=== PATIENT | female | born 1995 | race Caucasian/White ===

== ENCOUNTER 2016-06-01 10:19 | Emergency (ER) | payer OTHER ==
[~2016-06-01] VITALS: Ht 167.6 cm; Wt 115.2 kg
[~2016-06-01 10:19] MED LIST: PRENTAB26 PO
[2016-06-01 10:28] VITALS: TEMP 37; Ht 167.6 cm; Wt 115.2 kg
[2016-06-01] MEDS ORDERED: IBUPROFEN 600 MG TAB PO STA (10:57)
[2016-06-01] MEDS ORDERED: ACETAMINOPHEN 500 MG TAB PO STA (10:58)
--- NOTE | 2016-06-01 11:27 | EMERGENCY ROOM VISIT NOTE ---
History Report prepared by Tonny: aPt Rios Under the Supervision of: Dr. Kushal Ellis M.D. First contact with patient: 10:51 Chief Complaint: FLU LIKE SX Stated Complaint: FLU, BRONCHITIS History of Present Illness The patient is a 20 year old female who presents to the Emergency Room with complaints of worsening flu-like symptoms since yesterday. She reports cough, wheezing, shortness of breath, chills, hot flashes, headache, body aches, and sore throat. She has felt feverish but has not taken her temperature. She has not taken any medications for her symptoms. The patient denies any urinary symptoms. She has a rash on her lower back that she states is not new and has been evaluated before for this rash. She notes that her son is sick with similar symptoms and an ear infection. The patient is . She is unsure how far along she is, but had a positive test 3 weeks ago. She tried to make an appointment with her PCP today but they did not have any appointments available so she came to the ED for evaluation. The patient rates her pain as a 5/10 in severity. Source of History: patient Onset: yesterday Position: other (global) Symptom Intensity: 5/10 Quality: other (slu-like symptoms) Timing: worsening Associated Symptoms: + SOB, + chills, + cough, + headache, + rash, + sorethroat Note: Pt reports generalized body aches, wheezing, and hot flashes. Review of Systems All systems have been listed, reviewed, and are negative other than those previously mentioned. Please see Additional Medical History Sheet. Past Medical & Surgical Medical Problems: (1) 33 weeks gestation of (2) Cramping affecting , antepartum (3) Depression (4) Footling breech presentation (5) Frequent UTI (6) Intrauterine (7) Normal labor (8) Vaginal bleeding during , antepartum Family History No significant family history Social History Smoking Status: Never Smoker Alcohol Use: occasionally Marital Status: in relationship Housing Status: lives with roommate Occupation Status: employed, [employer] student Current/Historical Medications No Active Prescriptions or Reported Meds Allergies Coded Allergies: No Known Allergies (Verified , 0, 06/01/16) Physical Exam Vital Signs Date Time Temp Pulse Resp B/P Pulse Ox O2 Delivery O2 Flow Rate FiO2 06/01/16 12:02 99 16 100/58 95 Room Air 06/01/16 10:28 37.0 115 20 121/79 94 Room Air Physical Exam GENERAL: Patient awake, alert, oriented x 3. Patient follows commands. Patient does not appear toxic. Patient appears to be in minimal distress. Patient is adequately hydrated and well-nourished. SKIN: No erythema, pallor, cyanosis. Faint red non-blanching rash on low back. She has stretch levin on abdomen and back. HEENT: Normal head, pupils equal, reactive to light and accommodation. Ears normal. Oral cavity with slight swelling of the tonsils but no pus. Neck: Without adenopathy, no neck vein distention. LUNGS: Clear to auscultation. No wheezes, no rales, no rhonchi. HEART: No murmurs. No gallops. No rubs ABDOMEN: Obese, no masses, no rebound, no hepatomegaly or splenomegaly. EXTREMITIES: No signs of trauma. No pedal or pretibial edema. No calf or thigh tenderness. NEUROLOGIC: Cranial nerves II-XII within normal limits. No gross motor sensory function deficits. Medical Decision & Procedures Laboratory Results 06/01/16 11:05 06/01/16 11:05 Test 06/01/16 11:05 Red Blood Count 4.43 M/uL (4.2-5.4) Mean Corpuscular Volume 84.7 fL (80-100) Mean Corpuscular Hemoglobin 29.8 pg (25-34) Mean Corpuscular Hemoglobin Concent 35.2 g/dl (32-36) RDW Standard Deviation 42.7 fL (36.4-46.3) RDW Coefficient of Variation 13.8 % (11.5-14.5) Mean Platelet Volume 11.2 fL (7.4-10.4) Anion Gap 13.0 mmol/L (3-11) Est Creatinine Clear Calc Drug Dose 206.8 ml/min Estimated GFR () > 150.0 Estimated GFR (Non- 133.1 BUN/Creatinine Ratio 7.6 (10-20) Calcium Level 8.4 mg/dl (8.5-10.1) Influenza Type A Antigen POS for Influ A (NEG) Influenza Type B Antigen Neg for Influ B (NEG) Laboratory results as stated above per my review. Medications Administered Medications (Trade) Dose Ordered Sig/Luis Route Start Time Stop Time Status Last Admin Dose Admin Acetaminophen (Tylenol Tab) 1,000 mg NOW STAT PO 06/01/16 10:58 06/01/16 11:00 DC 06/01/16 11:04 1,000 MG ED Course 1051: Past medical records reviewed. The patient was evaluated in room C9. A complete history and physical examination was performed. 1058: Tylenol tab 1000 mg PO 1203: I reassessed the patient at this time. She is feeling better and resting comfortably. I discussed the results and treatment plan with the patient. I answered all pertaining questions that she had. She expressed understanding and verbalized agreement. The patient will be discharged home. Medical Decision Differential diagnoses includes influenza, other viral infection, pneumonia, bronchitis. Multiple labs were obtained. Please see above. The patient's strep test was negative. Influenza A is positive. The patient is . We did discuss the options of Tamiflu but following shared decision making we elected not to give her that medication. The patient's to continue taking Tylenol, drink extra fluids and rest. The patient's to be off work for the next 2 days. Impression Primary Impression: Influenza A Additional Impression: First trimester Scribe Attestation The scribe's documentation has been prepared under my direction and personally reviewed by me in its entirety. I confirm that the note above accurately reflects all work, treatment, procedures, and medical decision making performed by me. Departure Information Dispostion Home / Self-Care Prescriptions No Active Prescriptions or Reported Meds Referrals No Doctor, Assigned (PCP) Forms HOME CARE DOCUMENTATION FORM, IMPORTANT VISIT INFORMATION Patient Instructions ED Flu, My [facility] Additional Instructions 650 mg of Tylenol every 4 hours as needed for aches, pain or fever. Drink extra fluids. REST Off work until 06/03/16. Follow-up with obstetrics and with your family physician. Return here sooner if your symptoms are getting worse. Problem Qualifiers
[2016-06-01 11:30] LABS: HEMATOCRIT 37.5 % (37-47); MEAN CELL VOLUME 84.7 fL (80-100); MEAN CORPUSCULAR HEMOGLOBIN 29.8 pg (25-34); MEAN CORPUSCULAR HGB CONC 35.2 g/dl (32-36); MEAN PLATELET VOLUME 11.2 fL (7.4-10.4); PLATELET COUNT 189 K/uL (130-400); RED BLOOD COUNT 4.43 M/uL (4.2-5.4)
[2016-06-01 11:47] LABS: BLOOD UREA NITROGEN 4 mg/dl (7-18); BUN/CREATININE RATIO 7.6 (10-20); CALCIUM 8.4 mg/dl (8.5-10.1); CARBON DIOXIDE 18 mmol/L (21-32); CHLORIDE 106 mmol/L (98-107); CREATININE 0.55 mg/dl (0.60-1.20); GLUCOSE 97 mg/dl (70-99); POTASSIUM 3.7 mmol/L (3.5-5.1); SODIUM 137 mmol/L (136-145)
[2016-06-01 12:02] VITALS: BP 100/58; PULSE 99; O2SAT 95
== END 2016-06-01 12:25 | disposition home or self-care (01) ==
LOC: C.EDB 10:22 → C.EDC 12:25
DX: J09.X2 Influenza due to identified novel influenza A virus with other respiratory manifestations (principal); O00.01 Abdominal pregnancy with intrauterine pregnancy

== ENCOUNTER → 2016-07-25 | Outpatient (CLI) | payer OTHER ==
[~2016-07-25] MED LIST changes: +FLUO20CA36 PO; +MTR600X PO; +OXYC-57 PO
== END | disposition home or self-care (01) ==
LOC: C.PAPS 12:23
PROVIDERS: ATTEND Obstetrics & Gynecology
DX: R87.612 Low grade squamous intraepithelial lesion on cytologic smear of cervix (LGSIL) (principal)

== ENCOUNTER → 2016-07-25 | Outpatient (CLI) | payer OTHER ==
[2016-07-25 12:41] LABS: HEMATOCRIT 36.8 % (37-47); MEAN CELL VOLUME 86.4 fL (80-100); MEAN CORPUSCULAR HEMOGLOBIN 29.6 pg (25-34); MEAN CORPUSCULAR HGB CONC 34.2 g/dl (32-36); MEAN PLATELET VOLUME 11.4 fL (7.4-10.4); PLATELET COUNT 241 K/uL (130-400); RED BLOOD COUNT 4.26 M/uL (4.2-5.4); WHITE BLOOD COUNT 9.29 K/uL (4.8-10.8)
[2016-07-25 14:40] LABS: GTGD 50 Grams
[2016-07-26 15:38] LABS: AFP CONCENTRATION 61.6 NG/ML; AFP MULTIPLE OF MEDIAN 1.55; AFPTS GESTATIONAL AGE 19.7 WEEKS; AFPTS INSULIN DEP DIABETIC? NO; AFPTS MATERNAL WT 245 LBS; ALPHA-FETOPROTEIN RACE CAUCASIAN=W; ESTRIOL MULTIPLE OF MEDIAN 1.31; HISTORY OF NTD NO; INHIBIN A 144 PG/ML; INHIBIN A MOM 0.98; REPEAT SAMPLE? NO; hCG MULTIPLE OF MEDIAN 1.34
[2016-07-27 03:05] LABS: CHLAMYDIA TRACH RNA*** NOT DETECTED (NOT DETECTED); GC (NEIS GONORRHOEAE)RNA** NOT DETECTED (NOT DETECTED)
== END | disposition home or self-care (01) ==
LOC: C.LAB1850 10:36
PROVIDERS: ATTEND Obstetrics & Gynecology
DX: O09.92 Supervision of high risk pregnancy, unspecified, second trimester (principal); Z98.891 History of uterine scar from previous surgery

== ENCOUNTER → 2016-09-27 | Outpatient (CLI) | payer OTHER ==
[2016-09-27 17:42] LABS: HEMATOCRIT 34.8 % (37-47)
[2016-09-27 18:34] LABS: URINE APPEARANCE TURBID (CLEAR); URINE BILIRUBIN NEG (NEG); URINE COLOR YELLOW; URINE EPITHELIAL CELL AUTO >30 /lpf (0-5); URINE NITRITE NEG (NEG); URINE PH 8.5 (4.5-7.5); UROBILINOGEN NEG (NEG)
[2016-09-27 18:37] LABS: MANUAL MICROSCOPIC REQUIRED? NO; REVIEW REQ? NO
[2016-09-27 18:54] LABS: GTGD 50 Grams
== END | disposition home or self-care (01) ==
LOC: C.LAB1850 15:47
PROVIDERS: ATTEND Obstetrics & Gynecology
DX: O09.892 Supervision of other high risk pregnancies, second trimester (principal); Z3A.00 Weeks of gestation of pregnancy not specified

== ENCOUNTER 2016-10-03 09:38 | Inpatient (IN) | payer OTHER ==
[~2016-10-03] VITALS: Ht 160 cm; Wt 112.7 kg
[2016-10-03] MEDS ORDERED: CITRIC ACID/SODIUM CITRATE 15 ML UDC PO ONE (10:15)
[2016-10-03] MEDS ORDERED: LACTATED RINGER'S 1000ML 1,000 ML IV PRN (10:15)
[2016-10-03] MEDS ORDERED: CITRIC ACID/SODIUM CITRATE 15 ML UDC ONE (10:19)
[2016-10-03] MEDS ORDERED: CEFAZOLIN IV 3,000 MG in DEXTROSE 5% 50ML 50 ML IV SCH (10:30)
[2016-10-03] MEDS ORDERED: LACTATED RINGER'S 1000ML 1,000 ML IV SCH ×3 (10:30→12:00)
[2016-10-03 10:36] LABS: HEMATOCRIT 35.9 % (37-47); MEAN CELL VOLUME 87.1 fL (80-100); MEAN CORPUSCULAR HEMOGLOBIN 29.1 pg (25-34); MEAN PLATELET VOLUME 11.1 fL (7.4-10.4); PLATELET COUNT 217 K/uL (130-400); RED BLOOD COUNT 4.12 M/uL (4.2-5.4); WHITE BLOOD COUNT 13.04 K/uL (4.8-10.8)
[2016-10-03 10:41] LABS: MEAN CORPUSCULAR HGB CONC 33.4 g/dl (32-36)
[2016-10-03] MEDS ORDERED: FENTANYL CITRATE INJ 50 MCG/1 ML 2 ML VIAL ONE ×2 (10:47→11:00)
[2016-10-03] MEDS ORDERED: SUCCINYLCHOLINE CHLORIDE 20 MG/ML 10 ML VIAL IV ONE (10:57)
[2016-10-03] MEDS ORDERED: ONDANSETRON INJ 2 MG/ML 2 ML VIAL ONE (10:57)
[2016-10-03] MEDS ORDERED: PROPOFOL IV EMULSION 10 MG/ML 20 ML VIAL IV ONE (10:57)
[2016-10-03] MEDS ORDERED: OXYTOCIN INJ 10 UNITS/ML VIAL ONE (10:58)
[2016-10-03 11:00] LABS: ALB/GLOB RATIO 0.7 (0.9-2); ALKALINE PHOSPHATASE 95 U/L (45-117); ALT/SGPT 32 U/L (12-78); AST/SGOT 23 U/L (15-37); BLOOD UREA NITROGEN 8 mg/dl (7-18); BUN/CREATININE RATIO 13.2 (10-20); CALCIUM 8.7 mg/dl (8.5-10.1); CARBON DIOXIDE 21 mmol/L (21-32); CHLORIDE 107 mmol/L (98-107); CREATININE 0.62 mg/dl (0.60-1.20); GLUCOSE 102 mg/dl (70-99); POTASSIUM 3.9 mmol/L (3.5-5.1); SODIUM 138 mmol/L (136-145)
[2016-10-03] MEDS ORDERED: SODIUM CHLORIDE 0.9% 1000ML 1,000 ML IV SCH (11:23)
[2016-10-03] MEDS ORDERED: ONDANSETRON INJ 2 MG/ML 2 ML VIAL IV PRN ×2 (11:30→11:45)
[2016-10-03] MEDS ORDERED: NALOXONE HCL 0.4 MG/1 ML VIAL/CARP IV PRN (11:30)
[2016-10-03] MEDS ORDERED: LANOLIN OINT EXT PRN ×2 (11:30)
[2016-10-03] MEDS ORDERED: DIPHTHERIA/TETANUS/PERTUSSIS 0.5 ML SYR/VIAL IM. ONE (11:30)
[2016-10-03] MEDS ORDERED: BENZOCAINE 20% AER SPR 82.5 GM CAN EXT PRN (11:30)
[2016-10-03] MEDS ORDERED: DC PCA PRN (11:30)
[2016-10-03] MEDS ORDERED: DiphenhydrAMINE HCL 50 MG/ML VIAL IV PRN (11:30)
[2016-10-03] MEDS ORDERED: HYDROCORTISONE ACETATE 25 MG SUPP PR PRN (11:30)
[2016-10-03] MEDS ORDERED: SUPERCREAM 0.870 % 15GM JAR EXT PRN (11:30)
--- NOTE | 2016-10-03 11:30 | Anesthesiology Progress Note ---
Anesthesia Post Op Note Date & Time Oct 03, 2016 at 11:30 Notes Mental Status: alert / awake / arousable, participated in evaluation Pt Amnestic to Procedure: Yes Nausea / Vomiting: adequately controlled Pain: adequately controlled Airway Patency, RR, SpO2: stable & adequate BP & HR: stable & adequate Hydration State: stable & adequate Anesthetic Complications: no major complications apparent
[2016-10-03] MEDS ORDERED: KETOROLAC TROMETHAMINE 30 MG/ML VIAL ONE (11:35)
--- NOTE | 2016-10-03 11:39 | [facility] Operative Report ---
Operative Report Operative Date Oct 03, 2016. Pre-Operative Diagnosis 29 week intrauterine labor Prior c/s x 2, desires repeat c/s Post-Operative Diagnosis same Procedure(s) Performed Repeat low transverse section Surgeon Adrian Hernandez MD Lamp Mechanic Surgeon(s) Iva Cherry MD Estimated Blood Loss 600 Findings viable male apgars 2,5,8, weight 3# 5oz. normal uterus tubes and ovaries bilaterally. Fluids 1300 Specimens placenta, sent to [place] cord blood cord gases. Drains ybarra Anesthesia general Complication(s) None Disposition Recovery Room / PACU Indications 21yo at 29+wks egtara presents to L&D with labor. Patient reported contractions beginning at 8 AM. She felt that they were approximately 3 minutes apart on her arrival to labor and delivery. She denied leakage of fluid or vaginal bleeding. She reported movement. She reported significant pain with contractions. Sterile vaginal exam revealed the cervix to be 6 cm and rapidly dilated to 9 cm. The patient had a prior section 2 with the first involving a T incision. She desired section. The fetus was cephalic on bedside ultrasound. The anesthesia team as well as the pediatrics team were rapidly notified and we readied ourselves for section. Description of Procedure The patient was taken to the operating room and identified. She was placed in the supine position with a leftward tilt and prepped with Betadine and draped in the usual sterile fashion. Unfortunately the drape was not applied accurately and therefore was pulled away and with an additional splash of Betadine and new drape was placed. A Ybarra catheter had already been placed under sterile conditions. Once the patient was intubated and anesthesia gave the go ahead, the knife was used to create a Pfannenstiel skin incision that was carried down to the underlying layer of fascia. The fascia was nicked in the midline and this opening was extended laterally using Perales scissors. Corinne clamps were placed on the superior and inferior aspects the fascial incision tenting upwards and the underlying rectus muscles were dissected off of the overlying fascia both sharply and bluntly using Perales scissors. The rectus muscles were bluntly in the midline and the peritoneal cavity was bluntly entered into. Using both sharp and blunt dissection the rectus muscles were in the midline and the peritoneal opening was extended with care not to injure the bladder. The bladder blade was placed. The vesicouterine peritoneum was elevated and entered into sharply and the bladder flap was created digitally. The bladder blade was replaced. The lower uterine segment was assessed. The decision was made to proceed with a transverse incision on the lower uterine segment. As a hysterotomy was created it was stretched. The operators hand was placed through the hysterotomy and the bladder blade was removed. With fundal pressure the cephalic was delivered. Shoulders and body were quickly delivered thereafter and the cord was clamped and cut as the nose and mouth were bulb suctioned. The was handed off to the awaiting production engineer. Cord blood and cord gases were obtained. The placenta was manually expressed. Uterus was exteriorized and cleared of all clots and debris. The hysterotomy was closed in 2 layers with 0 Vicryl first as a running interlocking followed by a second imbricating layer. 2 bleeding sites at the hysterotomy were stitched with [id number] sutures of 2-0 Vicryl for excellent hemostasis. The pelvis was irrigated. The gutters were cleared of all clots and debris. The uterus returned to the abdomen. Hysterotomy was reinspected and noted to be hemostatic. The fascia was closed in a running fashion using 0 Vicryl. The subcutaneous fat was reapproximated using 2-0 chromic. Skin was then closed in a subcuticular fashion using 4-0 Vicryl. All sponge lap and needle counts were correct 2. The patient was returned to the recovery room in stable condition. I attest to the content of the Intraoperative Record and any orders documented therein. Any exceptions are noted below.
[2016-10-03] MEDS ORDERED: ATROPINE SULFATE 0.1 MG/ML 5ML SYR IV PRN (11:45)
[2016-10-03] MEDS ORDERED: KETOROLAC TROMETHAMINE 30 MG/ML VIAL IV. PRN (11:45)
[2016-10-03] MEDS ORDERED: EpHEDrine SULFATE INJ 50 MG/ML AMP IV PRN (11:45)
--- NOTE | 2016-10-03 11:49 | History and Physical ---
History & Physical Date Oct 03, 2016. Chief Complaint Regular contractions History of Present Illness The patient is a 21 year old female with complaints of regular contractions that began at 8 AM. She denied leakage of fluid, vaginal bleeding. She reported good movement. She felt that her contractions were every 3 minutes apart and were painful. Since course was complicated by #1 short interval with repeat at 33 weeks #2 history of prior 2 first was breech at 38 weeks with a T-incision and then repeat low transverse section at 33 weeks. #3 history of severe preeclampsia with the last only discovered on her arrival for labor #4 history of labor with the last #5 late presentation to care at 20 weeks #6 obesity [place] use was discussed however the patient presented beyond 20 weeks already and she did have an [facility] consult to review. Past Medical/Surgical History Obstetric history: Prior term delivery, prior delivery at 33 weeks complicated by preeclampsia. Gynecologic history: colposcopy 2009, 2015. Most recent Pap smear in July 2016 normal. No STDs. Past medical history: anxiety, depression, history of pyelonephritis in 2014 Past surgical history: Colposcopy, 2 Allergies Coded Allergies: No Known Allergies (Verified , 0, 06/01/16) Home Medications No Active Prescriptions or Reported Meds Physical Examination Abdomen / GI: + pertinent finding (gravid nontender) Extremities: normal inspection Neurologic/Psych: no motor/sensory deficits, alert Addiitonal Comments: Tocodynamometry not traced well, suspect every 3 minute contractions per nurse, mild by palpation but patient is obese. heart tones 130 moderate variability, spontaneous accelerations, occasional variable decelerations. Sterile speculum exams exam with visible membranes. GBS and RNA probe obtained. Sterile vaginal exam 6 cm 100% effaced and bulging membranes. Diagnosis 29 week intrauterine , labor, advanced cervical dilatation, prior section 2, desires repeat Plan of Treatment The patient will be admitted. We will try to obtain stat labs. She needs to proceed to the operating room as soon as possible. A bedside ultrasound showed cephalic presentation. The patient was counseled that if her water broke it was unlikely that we would have time to proceed to section. She desired attempt to proceed with . Anesthesia and pediatrics were made aware immediately. The OR was readied. Prior to going back to the operating room her cervix was reexamined and was 9+ centimeters dilated. In consultation with anesthesia it was determined that the patient would need to proceed with general anesthesia.
[2016-10-03] MEDS: FENTANYL CITRATE INJ 50 MCG/1 ML 2 ML VIAL IV PRN ×3 (11:53→12:05)
[2016-10-03] MEDS: MoRPHine SULFATE 1 MG/ML 50 ML PCA CASS IV PRN ×4 (12:06→23:17)
[2016-10-03] MEDS: OXYTOCIN INJ 20 UNITS in LACTATED RINGER'S 1000ML 1,000 ML IV SCH ×2 (12:07→20:48)
[2016-10-03] MEDS: SIMETHICONE 80 MG CHEW PO SCH ×3 (13:00→19:59)
[2016-10-03 15:35] VITALS: BP 125/79; PULSE 122; TEMP 36.7; O2SAT 99
[2016-10-03 15:42] VITALS: Ht 160 cm; Wt 112.7 kg
[2016-10-03] MEDS ORDERED: PRENTAB26 PO (15:43)
[2016-10-03] MEDS: DOCUSATE SODIUM 100 MG CAP PO SCH (19:59)
[2016-10-03 20:05] VITALS: BP 109/71; PULSE 86; TEMP 36.9; O2SAT 99
[2016-10-03] MEDS: CEFAZOLIN IV 2,000 MG in DEXTROSE 5% 50ML 50 ML IV SCH (21:34)
[2016-10-04] VITALS (7 sets, daily range): BP systolic 110–139; BP diastolic 67–91; PULSE 81–108; TEMP 36.6–37; O2SAT 96–99
[2016-10-04] MEDS: OXYTOCIN INJ 20 UNITS in LACTATED RINGER'S 1000ML 1,000 ML IV SCH (04:02)
[2016-10-04] MEDS: CEFAZOLIN IV 2,000 MG in DEXTROSE 5% 50ML 50 ML IV SCH ×2 (05:33→13:37)
[2016-10-04] MEDS ORDERED: CEFAZOLIN IV 2,000 MG in DEXTROSE 5% 50ML 50 ML IV SCH (06:00)
[2016-10-04] MEDS ORDERED: KETOROLAC TROMETHAMINE 30 MG/ML VIAL IV. PRN (06:00)
[2016-10-04] MEDS ORDERED: OXYCODONE/ACETAMINOPHEN 5-325 TAB PO PRN (06:00)
[2016-10-04] MEDS ORDERED: ZOLPIDEM TARTRATE 5 MG TAB PO PRN (06:00)
--- NOTE | 2016-10-04 07:15 | Medical Student: [facility] ---
Med Student PRODUCT SUPPORT ANALYST Progress Nt Date of Service Oct 04, 2016. Subjective conversation w/ patient, physical exam Ambulation: limited ambulation Voiding: ybarra catheter in place Passing Gas: No Lochia: Moderate Pain: Itching at incision site. Notes: Ybarra catheter removed roughly a half hour ago, has not urinated on own. Has not had gas or a bowel movement. Review of Systems Constitutional: No fever, No chills, No sweats Respiratory: No cough Cardiac: No chest pain Abdomen: No nausea, No vomiting, No diarrhea, No constipation Female : No urinary frequency, No incontinence Objective Vital Signs Date Time Temp Pulse Resp B/P (MAP) Pulse Ox O2 Delivery O2 Flow Rate FiO2 10/04/16 04:00 36.9 91 18 113/78 (90) 99 Room Air 10/04/16 00:12 99 Room Air 10/04/16 00:08 36.8 99 18 137/87 (104) 99 Room Air 10/03/16 20:05 36.9 86 16 109/71 (84) 99 Room Air 10/03/16 15:35 36.7 122 18 125/79 (94) 99 Room Air 10/03/16 15:35 99 10/03/16 15:35 99 Room Air Physical Exam General Appearance: uncomfortable Respiratory/Chest: lungs clear Cardiovascular: regular rate, rhythm Extremities: non-tender, no pedal edema, no calf tenderness Laboratory Results Last 24 Hours Test 10/03/16 10:24 10/04/16 06:00 White Blood Count 13.04 K/uL Red Blood Count 4.12 M/uL Hemoglobin 12.0 g/dL Hematocrit 35.9 % Mean Corpuscular Volume 87.1 fL Mean Corpuscular Hemoglobin 29.1 pg Mean Corpuscular Hemoglobin Concent 33.4 g/dl RDW Standard Deviation 43.9 fL RDW Coefficient of Variation 13.9 % Platelet Count 217 K/uL Mean Platelet Volume 11.1 fL Sodium Level 138 mmol/L Potassium Level 3.9 mmol/L Chloride Level 107 mmol/L Carbon Dioxide Level 21 mmol/L Anion Gap 10.0 mmol/L Blood Urea Nitrogen 8 mg/dl Creatinine 0.62 mg/dl Estimated GFR () 147.3 Estimated GFR (Non- 127.1 BUN/Creatinine Ratio 13.2 Random Glucose 102 mg/dl Calcium Level 8.7 mg/dl Total Bilirubin 0.4 mg/dl Aspartate Amino Transf (AST/SGOT) 23 U/L Alanine Aminotransferase (ALT/SGPT) 32 U/L Alkaline Phosphatase 95 U/L Total Protein 6.5 gm/dl Albumin 2.6 gm/dl Globulin 3.9 gm/dl Albumin/Globulin Ratio 0.7 Assessment and Plan Post- Day Number: 1 Continue Routine Care: Continue with routine care. Patient must ambulate fully, and have full function of bowel and bladder, incision site must heal prior to discharge.
[2016-10-04 07:50] LABS: BASO % 0.2 %; BASO ABS # 0.03 K/uL (0-0.2); COMPLETE YES; EOS % 2.1 %; IG% 0.7 %; LYMPH % 18.9 %; LYMPH ABS # 2.35 K/uL (1.2-3.4); MEAN CELL VOLUME 86.6 fL (80-100); MEAN CORPUSCULAR HEMOGLOBIN 28.9 pg (25-34); MEAN CORPUSCULAR HGB CONC 33.3 g/dl (32-36); MEAN PLATELET VOLUME 10.5 fL (7.4-10.4); MONO % 8.3 %; NEUT % 69.8 %; PLATELET COUNT 231 K/uL (130-400); RED BLOOD COUNT 3.81 M/uL (4.2-5.4); WHITE BLOOD COUNT 12.46 K/uL (4.8-10.8)
[2016-10-04] MEDS: DOCUSATE SODIUM 100 MG CAP PO SCH ×2 (07:51→20:01)
[2016-10-04] MEDS: SIMETHICONE 80 MG CHEW PO SCH ×4 (07:51→20:01)
--- NOTE | 2016-10-04 08:00 | Progress Note ---
Subjective Oct 04, 2016. Subjective conversation w/ patient, physical exam Ambulation: ambulating normally Passing Gas: No Diet Tolerance: Clear Liquids Lochia: Small Pain: having alot of itching of legs, had sunburn Comment: patient states baby is well and in nicu. she seems to indicate they are worried she had preeclampsia this . i told her i have no evidence of that. labs normal reviewed. explained rationale for delivery and rationale for kefzol abx pp. Objective Vital Signs Date Time Temp Pulse Resp B/P (MAP) Pulse Ox O2 Delivery O2 Flow Rate FiO2 10/04/16 04:00 36.9 91 18 113/78 (90) 99 Room Air 10/04/16 00:12 99 Room Air 10/04/16 00:08 36.8 99 18 137/87 (104) 99 Room Air 10/03/16 20:05 36.9 86 16 109/71 (84) 99 Room Air 10/03/16 15:35 36.7 122 18 125/79 (94) 99 Room Air 10/03/16 15:35 99 10/03/16 15:35 99 Room Air Physical Exam General Appearance: WELL-APPEARING, WD/WN, uncomfortable (has itching of her legs due to sunburn) Respiratory/Chest: lungs clear Cardiovascular: regular rate, rhythm Abdomen: non tender, soft Fundus: Firm, Relation to Umbilicus (2 down) Incision Description: Clean, Dry & Intact Extremities: non-tender Laboratory Results Last 24 Hours Test 10/03/16 10:24 10/04/16 07:14 White Blood Count 13.04 K/uL 12.46 K/uL Red Blood Count 4.12 M/uL 3.81 M/uL Hemoglobin 12.0 g/dL 11.0 g/dL Hematocrit 35.9 % 33.0 % Mean Corpuscular Volume 87.1 fL 86.6 fL Mean Corpuscular Hemoglobin 29.1 pg 28.9 pg Mean Corpuscular Hemoglobin Concent 33.4 g/dl 33.3 g/dl RDW Standard Deviation 43.9 fL 43.3 fL RDW Coefficient of Variation 13.9 % 13.9 % Platelet Count 217 K/uL 231 K/uL Mean Platelet Volume 11.1 fL 10.5 fL Sodium Level 138 mmol/L Potassium Level 3.9 mmol/L Chloride Level 107 mmol/L Carbon Dioxide Level 21 mmol/L Anion Gap 10.0 mmol/L Blood Urea Nitrogen 8 mg/dl Creatinine 0.62 mg/dl Estimated GFR () 147.3 Estimated GFR (Non- 127.1 BUN/Creatinine Ratio 13.2 Random Glucose 102 mg/dl Calcium Level 8.7 mg/dl Total Bilirubin 0.4 mg/dl Aspartate Amino Transf (AST/SGOT) 23 U/L Alanine Aminotransferase (ALT/SGPT) 32 U/L Alkaline Phosphatase 95 U/L Total Protein 6.5 gm/dl Albumin 2.6 gm/dl Globulin 3.9 gm/dl Albumin/Globulin Ratio 0.7 Neutrophils (%) (Auto) 69.8 % Lymphocytes (%) (Auto) 18.9 % Monocytes (%) (Auto) 8.3 % Eosinophils (%) (Auto) 2.1 % Basophils (%) (Auto) 0.2 % Neutrophils # (Auto) 8.69 K/uL Lymphocytes # (Auto) 2.35 K/uL Monocytes # (Auto) 1.04 K/uL Eosinophils # (Auto) 0.26 K/uL Basophils # (Auto) 0.03 K/uL Immature Granulocyte % (Auto) 0.7 % Immature Granulocyte # (Auto) 0.09 K/uL Assessment and Plan Problem List Medical Problems: (1) First trimester Status: Acute (2) Influenza A Status: Acute Post-Op Day#: 1 Continue Routine Care: will try supportive measures for her itching areas. will add prozac as pt concerned for pp depression and has h/o prozac use. she denies hi or si. will see her pcp in followup to continue that medicine. she is aware we will need to monitor her for an additional day at least before considering d/c home as we know she wants to go to [place] to see baby. she needs to ambulate, pass gas, advance diet and void spont. will will also try oral pain meds for pain control today. she is also aware that she can stop by the office and sign MA papers for tubal upon discharge so that we may help her with her control plan moving forward.
[2016-10-04] MEDS ORDERED: hydrOXYzine HCL 10 MG TAB PO PRN (08:15)
[2016-10-04] MEDS: FLUOXETINE HCL 20 MG CAP PO SCH (08:21)
[2016-10-04] MEDS: OXYCODONE/ACETAMINOPHEN 5-325 TAB PO PRN ×4 (08:22→21:07)
[2016-10-04] MEDS ORDERED: CALAMINE/PRAMOXINE LOTION 177 APPLN/177 ML BTL EXT PRN (08:30)
[2016-10-04] MEDS: IBUPROFEN 600 MG TAB PO PRN ×4 (08:32→21:07)
[2016-10-04 10:29] LABS: BLOOD UREA NITROGEN 6 mg/dl (7-18); BUN/CREATININE RATIO 9.9 (10-20); CALCIUM 7.9 mg/dl (8.5-10.1); CARBON DIOXIDE 25 mmol/L (21-32); CHLORIDE 106 mmol/L (98-107); CREATININE 0.57 mg/dl (0.60-1.20); GLUCOSE 114 mg/dl (70-99); POTASSIUM 3.5 mmol/L (3.5-5.1); SODIUM 139 mmol/L (136-145)
[2016-10-04 10:37] LABS: ALB/GLOB RATIO 0.6 (0.9-2); ALKALINE PHOSPHATASE 79 U/L (45-117); ALT/SGPT 31 U/L (12-78); AST/SGOT 36 U/L (15-37)
[2016-10-05 06:35] LABS: HEMATOCRIT 29.8 % (37-47)
--- NOTE | 2016-10-05 06:45 | OB/GYN Progress Note ---
MEDICAL AIDES TEACHER Progress Note Date of Service Oct 05, 2016. Subjective conversation w/ patient, physical exam, chart review, lab review Ambulation: limited ambulation (just walking about room) Voiding: no voiding problems Passing Gas: Yes Diet Tolerance: Clear Liquids Lochia: Small Feeding Type: Breast Feeding (single-time pump & store) Pain: Says sore around incision. Notes: Improved itching, no longer all over, now mostly on back Review of Systems Constitutional: No fever, No chills Respiratory: No cough, No shortness of breath Cardiac: No chest pain Abdomen: No nausea, No vomiting, No diarrhea Female : No dysuria Objective Vital Signs Date Time Temp Pulse Resp B/P (MAP) Pulse Ox O2 Delivery O2 Flow Rate FiO2 10/04/16 23:15 36.6 81 16 110/67 (81) 97 Room Air 10/04/16 23:15 Room Air 10/04/16 15:35 37.0 101 20 139/91 (107) 99 Room Air 10/04/16 15:35 99 Room Air 10/04/16 13:30 36.7 86 18 117/78 (91) 96 Room Air 10/04/16 08:30 Room Air 10/04/16 08:00 36.7 108 20 125/85 (98) Room Air Physical Exam General Appearance: WELL-APPEARING, WD/WN, NO APPARENT DISTRESS Respiratory/Chest: lungs clear, normal breath sounds Cardiovascular: regular rate, rhythm Abdomen: normal bowel sounds, non tender (upper abd), soft Fundus: Firm, Tender (mild (appropriate) fundal ttp), Relation to Umbilicus ( approx two down) Incision Description: Clean, Dry & Intact (no erythema, very minimal clear weeping) Extremities: normal range of motion, non-tender, normal inspection, no pedal edema, no calf tenderness Laboratory Results Last 24 Hours Test 10/04/16 07:14 10/04/16 09:09 10/05/16 06:12 White Blood Count 12.46 K/uL Red Blood Count 3.81 M/uL Hemoglobin 11.0 g/dL 10.0 g/dL Hematocrit 33.0 % 29.8 % Mean Corpuscular Volume 86.6 fL Mean Corpuscular Hemoglobin 28.9 pg Mean Corpuscular Hemoglobin Concent 33.3 g/dl Platelet Count 231 K/uL Mean Platelet Volume 10.5 fL Neutrophils (%) (Auto) 69.8 % Lymphocytes (%) (Auto) 18.9 % Monocytes (%) (Auto) 8.3 % Eosinophils (%) (Auto) 2.1 % Basophils (%) (Auto) 0.2 % Neutrophils # (Auto) 8.69 K/uL Lymphocytes # (Auto) 2.35 K/uL Monocytes # (Auto) 1.04 K/uL Eosinophils # (Auto) 0.26 K/uL Basophils # (Auto) 0.03 K/uL RDW Standard Deviation 43.3 fL RDW Coefficient of Variation 13.9 % Immature Granulocyte % (Auto) 0.7 % Immature Granulocyte # (Auto) 0.09 K/uL Sodium Level 139 mmol/L Potassium Level 3.5 mmol/L Chloride Level 106 mmol/L Carbon Dioxide Level 25 mmol/L Anion Gap 8.0 mmol/L Blood Urea Nitrogen 6 mg/dl Creatinine 0.57 mg/dl Est Creatinine Clear Calc Drug Dose 185.4 ml/min Estimated GFR () > 150.0 Estimated GFR (Non- 130.7 BUN/Creatinine Ratio 9.9 Random Glucose 114 mg/dl Calcium Level 7.9 mg/dl Total Bilirubin 0.4 mg/dl Aspartate Amino Transf (AST/SGOT) 36 U/L Alanine Aminotransferase (ALT/SGPT) 31 U/L Alkaline Phosphatase 79 U/L Total Protein 5.1 gm/dl Albumin 2.0 gm/dl Globulin 3.1 gm/dl Albumin/Globulin Ratio 0.6 Assessment and Plan Post-Op Day Number: 2 Continue Routine Care: 21yo s/p emergent for labor (29+5 wk), now PPD #2. - Blood type O pos. GBS negative. Rubella immune. - Vital signs reviewed and stable. - Pain controlled with ibuprofen and Percocet. - No leg swelling or tenderness on calf palpation. Encourage ambulation. - transferred day of delivery. Pt wishes to store breast milk, so assisting with this here. - Hemoglobin 12.0, 11.0, 10.0. Bleeding has improved. Continue to monitor clinically. - Ongoing concerns about itching (sx same as prior to arrival). LFT recheck normal. Sx may be related to recent sunburn, so rxed Benadryl and offered calamine + Vaseline as barrier creams. - Pt requested to resume prior Prozac 20 mg q day for hx depressive sx. This rx restarted here yesterday. Pt states this morning she is not overtly depressed but wants to avoid PPD. Says she's going to f/u with her PCM about it. We reviewed s/s to watch for and precautions to take. - Continue post delivery care. - Pt agreed with above plan, all current questions answered. Romulo Pickard MD, PGY1 [employer] Fundraising Collector Physician Supervision Note: I interviewed and examined the patient. Discussed with Dr. Pickard and agree with findings and plan as documented in the note. Any exceptions or clarifications are listed here: [None] Documented By: Joseluis Cherry Resident Tracking Resident Involvement: Resident Care Provided Care Provided: OB Delivery (morning rounds)
[2016-10-05] MEDS ORDERED: MTR600X PO (07:11)
[2016-10-05] MEDS ORDERED: FLUO20CA36 PO (07:11)
[2016-10-05] MEDS ORDERED: OXYC-57 PO (07:11)
--- NOTE | 2016-10-05 07:11 | Discharge Instructions ---
Discharge Instructions Date of Service Oct 05, 2016. Admission Reason for Admission: R/O Pre Term Labor Discharge Discharge Diagnosis / Problem: C/S Discharge Goals Goal(s): Routine recovery after Activity Recommendations Activity Limitations: per Instructions/Follow-up section . Instructions / Follow-Up Instructions / Follow-Up ACTIVITY RECOMMENDATIONS: * Gradual return to full activity over the next 2-3 weeks. * No lifting - nothing heavier than baby over the next 2-3 weeks. * Do not engage in vigorous exercise, sexual activity or sports until cleared by your physician. * Do not drive or operate any motorized equipment until cleared by your physician. * You may shower/bathe daily. MEDICATIONS: For discomfort or pain, you may use Acetaminophen (Tylenol), Ibuprofen (Advil), or Naproxen (Aleve) following the package directions. For constipation you may use Colace following the package directions. BREAST CARE: If you are not breast feeding: * Wear a supportive bra 24 hours a day for one to two weeks. * Avoid stimulating your breasts and nipples as much as possible during the first few weeks after delivery. * When taking a shower, have the warm water hit your back, not breasts. * When your breasts feel full, apply ice packs. Usually three to four times a day helps ease the discomfort. * Take a mild pain medication (Tylenol / Motrin) when you are uncomfortable. If breast feeding: * Use breast milk to lubricate nipples. Lansinoh cream may be used for sore nipples. You do not need to remove cream prior to breast feeding. If using a different brand of cream, check the label for directions regarding removal of cream prior to nursing. * Wear a supportive bra. * If having problems with breasts or breast feeding, call a citrix consultant or your health care provider. SPECIAL CARE INSTRUCTIONS: When you are discharged from the hospital, it is important for you to follow the instructions listed below: * During the first week at home, you should be able to care for yourself and your baby. In addition, the usual light household activities are encouraged. * Limit your activities to the way you feel. Do not try to clean the house or move furniture. Be sensible. * If you actively engage in sports and have done so up until the time of your delivery, you may resume these activities as soon as you feel able. This may take up to one month or even longer. Use good judgment. * Continue to take your vitamins for at least six weeks after the of your baby. * Your diet need not be limited unless you were on a special diet before your delivery. Breast-feeding mothers need around 2500 calories per day and at least 64-80 ounces of fluid per day (8 to 10 glasses). * You should eat foods from the four major food groups. Crash diets or fad diets are to be avoided. Eating lean meats, fresh fruits and vegetables, low-fat dairy products, high fiber foods and a regular exercise program, will help you get back to your pre- weight without putting your health at risk. * Constipation is sometimes a problem after delivery. Take a mild laxative as needed. If breast feeding, Milk of Magnesia is acceptable to use. You may use a suppository or Fleets enema. * A daily shower or tub bath is suggested. Wash incision daily with warm soapy water and pat dry. It doesn't need to be covered unless drainage is present. * A bloody vaginal discharge will usually continue until around four weeks . A small amount of bleeding may continue for as long as six weeks. Vaginal discharge changes from the bright red bleeding after delivery to pink then brownish and finally yellowish-pink before becoming white and disappearing. * Bleeding may increase with activity. Your first period may come in 4-8 weeks. If you are breast feeding, your period may be delayed even longer. * [place] (sex) can begin whenever both you and your partner feel comfortable and do not have any form of genital infection. It is recommended that you wait at least six weeks for internal and external healing to occur. If you have questions, please talk to your health care practitioner. A condom should be used to prevent infection and . * Foreplay, gentle intercourse and lubrication is very important the first several times to prevent pain. A water-based lubricant such as K-Y jelly or Astroglide may be used. * If you have RH negative blood and your baby is RH positive, you will receive RHOGAM by injection prior to discharge. The nurse will give you a card to keep with you that has the date and place that you received RHOGAM after delivery. * During your care, you had a Rubella screen done to check for the presence of rubella antibodies in your blood. If your test was negative, you will receive a Rubella vaccine prior to discharge. This vaccine may cause a fever, soreness at the injection site and flu-like symptoms. If these symptoms persist, notify your health care practitioner. is not advised for one month after a Rubella vaccine. * Verbalizes understanding of car seat law as reviewed with patient nursing. * Car Seat hand-out given and reviewed with patient by nursing. * Shaken baby information reviewed with patient by nursing. Call you doctor if: * Heavy bleeding (saturating several pads an hour) or passing clots the size of your fist. * A fever >101 degrees F (38.3 degrees C) on two occasions four hours apart and /or chills. * Unusual pain in the pelvic or vaginal areas. * Call the doctor for any increased redness, drainage or swelling around the incision and any pain unrelieved by prescribed pain medication. * "Baby Blues" lasting longer than two weeks. If you have any questions or concerns, call your health care practitioner at . FOLLOW UP VISIT: * Please call the office at to schedule a 6 week examination. It is important you keep this appointment. It is important for you to make arrangements for either yearly or twice yearly check-ups thereafter. Current Hospital Diet Patient's current hospital diet: Regular OB Diet Discharge Diet Recommended Diet: Regular OB Diet Procedures Procedures Performed: repeat caesarean section Pending Studies Studies pending at discharge: no Medical Emergencies . Who to Call and When: Medical Emergencies: If at any time you feel your situation is an emergency, please call [phone] immediately. . Non-Emergent Contact Non-Emergency issues call your: Home Therapy Clinician . . "Provider Documentation" section prepared by Joseluis Cherry. . VTE Core Measure Inpt VTE Proph given/why not?: Ita Case, SCD's
[2016-10-05 07:34] VITALS: BP 99/65; PULSE 84; TEMP 36.7; O2SAT 99
[2016-10-05] MEDS: IBUPROFEN 600 MG TAB PO PRN ×2 (07:44→12:57)
[2016-10-05] MEDS: OXYCODONE/ACETAMINOPHEN 5-325 TAB PO PRN ×2 (07:45→12:58)
[2016-10-05] MEDS: FLUOXETINE HCL 20 MG CAP PO SCH (07:46)
[2016-10-05] MEDS: SIMETHICONE 80 MG CHEW PO SCH ×2 (07:46→12:58)
[2016-10-05] MEDS: DOCUSATE SODIUM 100 MG CAP PO SCH (07:46)
[2016-10-05 12:51] VITALS: BP_DIAS 65; PULSE 84; TEMP 36.7
[2016-10-09] MEDS ORDERED: IBUPROFEN 600 MG TAB PO PRN (05:59)
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
== END 2016-10-05 13:10 | disposition home or self-care (01) | DRG 765 ==
LOC: C.OPB 09:38 → C.LD 09:38 → C.OPB 10:18 → C.LD 10:18 → C.OBG 15:13
PROVIDERS: ADMIT Obstetrics & Gynecology; ATTEND Obstetrics & Gynecology
PROC: 10D00Z1 Extraction of Products of Conception, Low, Open Approach (ICD-10-PCS; principal; 2016-10-03 10:35)
DX: O34.211 Maternal care for low transverse scar from previous cesarean delivery (principal); O60.14X0 Preterm labor third trimester with preterm delivery third trimester, not applicable or unspecified; O99.214 Obesity complicating childbirth; E66.9 Obesity, unspecified; Z3A.29 29 weeks gestation of pregnancy; Z37.0 Single live birth; O99.73 Diseases of the skin and subcutaneous tissue complicating the puerperium; L29.9 Pruritus, unspecified

== ENCOUNTER 2019-03-10 19:03 | Inpatient (IN) ==
--- OUTSIDE RECORDS SUMMARY | 2019-03-10 19:06 | External Medical Summary | Continuity of Care Document ---
:1995 Author Name Jeremy Mae, Provider Address Unavailable Unavailable , Care Team Providers Name Role Phone Unavailable Unavailable Unavailable Nnamdi Mae, Guillermina Duval Unavailable [email or web address] PCP, UNKNOWN Unavailable Unavailable Unavailable Unavailable Unavailable Problems Depression (311) (F32.9) Fatigue (780.79) (R53.83) H/O severe pre-eclampsia (V13.29) (Z87.59) History of section, classical (V45.89) (Z98.891) Abdominal mass, RLQ (right lower quadrant) (789.33) (R19.03) Request for sterilization (V25.2) (Z30.2) Bacterial vaginosis (616.10) (N76.0) Low grade squamous intraepithelial lesio n (LGSIL) on cervical Pap smear (795.03) (R87.612) Exogenous obesity (278.00) (E66.09) Allergies and Adverse Reactions No Known Drug Allergies (Allergy) Medications Clindamycin Phosphate 2 % Vaginal Cream; i applicator intravaginally at HS for 7 nights Carmelita Coto Start: 21-Nov-2017 Quantity: 1 40 GM Tube Refills: 0 Clindamycin Phosphate 2 % Vaginal Cream; Insert one applicator at bedime once per week for three months. Carmelita Coto Start: 21-Nov-2017 Quantity: 1 40 GM Tube Refills: 1 Procedures History of Supervision of normal Status: Completed History of Section Low Transverse Status: Completed Immunizations Influenza (Whole) On: 04-May-2015 11:10 Lot #: [id number], SANOFI PASTEUR Tdap (Adacel) On: 26-Aug-2015 15:40 Lot #: [id number], SANOFI PASTEUR Social History - Smoking Status Unknown if ever smoked Plan of Treatment Planned Observations Planned Goals not documented Results No Known Results Results not documented Encounters Appointment; Guillermina Coto M.D. 23-Nov-2017 11:30 Encounter Diagnosis: Problem not documented Appointment; Guillermina Coto M.D. 21-Nov-2017 12:00 Encounter Diagnosis: Problem not documented Appointment; Monse Hernandez M.D. 09-Jul-2017 16:00 Encounter Diagnosis: Problem not documented
--- OUTSIDE RECORDS SUMMARY | 2019-03-10 19:06 | External Medical Summary | Continuity of Care Document ---
:1995 Author Name Jeremy Mae, Provider Address Unavailable Unavailable , Care Team Providers Name Role Phone Unavailable Unavailable Unavailable Nnamdi Mae, Guillermina Duval Unavailable [email or web address] [email or web address], UNKNOWN Unavailable Unavailable Unavailable Unavailable Unavailable Problems Depression (311) (F32.9) Abdominal mass, RLQ (right lower quadrant) (789.33) (R19.03) Request for sterilization (V25.2) (Z30.2) Bacterial vaginosis (616.10) (N76.0) Low grade squamous intraepithelial lesio n (LGSIL) on cervical Pap smear (795.03) (R87.612) Exogenous obesity (278.00) (E66.09) Fatigue (780.79) (R53.83) History of section, classical (V45.89) (Z98.891) H/O severe pre-eclampsia (V13.29) (Z87.59) Allergies and Adverse Reactions No Known Drug [...] Influenza (Whole) On: 04-May-2015 11:10 Lot #: [id number], SANOFI PASTEUR Tdap (Adacel) On: 26-Aug-2015 15:40 Lot #: [id number], SANOFI PASTEUR Social History - Smoking Status [...]
[2019-03-10 20:25] LABS: Appearance Urine Cloudy (Clear); Bacteria Urine Automated 1+ (Negative); Bilirubin Urine Negative (Negative); Blood Urine Negative (Negative); Color Urine Yellow; Epithelial Cell Urine Auto >30 /lpf (0-5); Glucose Urine UA Negative (Negative); Ketones Urine Negative (Negative); Leukocyte Esterase Urine Negative (Negative); Nitrite Urine Negative (Negative); Protein Urine Negative (Negative); Specific Gravity Urine 1.033 (1.000-1.030); Urobilinogen Urine Negative (Negative)
[2019-03-10 20:38] LABS: Basophils # (auto) 0.07 K/uL (0-0.2); Basophils % (auto) 0.7 %; Eosinophils # (auto) 0.45 K/uL (0-0.5); Eosinophils % (auto) 4.3 %; Hematocrit (blood only) 41.3 % (37-47); Hemoglobin 13.8 g/dL (12.0-16.0); Immature Granulocytes # (auto) 0.03 K/uL (0.00-0.02); Immature Granulocytes % (auto) 0.3 %; Lymphocytes # (auto) 2.38 K/uL (1.2-3.4); Lymphocytes % (auto) 22.8 %; Mean Corpuscular Hemoglobin 29.8 pg (25-34); Mean Corpuscular Hgb Conc 33.4 g/dL (32-36); Mean Corpuscular Volume 89.2 fL (80-100); Mean Platelet Volume 11.1 fL (7.4-10.4); Monocytes # (auto) 0.59 K/uL (0.11-0.59); Monocytes % (auto) 5.6 %; Neutrophils # (auto) 6.94 K/uL (1.4-6.5); Neutrophils % (auto) 66.3 %; Platelet Count 267 K/uL (130-400); RDW Coefficient of Variation 13.8 % (11.5-14.5); RDW Standard Deviation 45.2 fL (36.4-46.3); Red Blood Count 4.63 M/uL (4.2-5.4); White Blood Count 10.46 K/uL (4.8-10.8)
[2019-03-10 20:39] LABS: RBC Urine Automated 0-4 /hpf (0-4)
[2019-03-10 20:40] LABS: Mucus Urine Present (None Prsent)
[2019-03-10 20:51] LABS: Acetaminophen < 2 ug/ml (10-30); Salicylate < 1.7 mg/dl (2.8-20)
[2019-03-10 20:52] LABS: Amphetamines+Metham, Urine Neg (Neg); Barbiturates, Urine Neg (Neg); Benzodiazepine, Urine Neg (Neg); Cocaine, Urine Neg (Neg); MDMA (Ecstacy), Urine Neg (Neg); Methadone, Urine Neg (Neg); Opiate, Urine Neg (Neg); Phencyclidine, Urine Neg (Neg)
[2019-03-10 20:53] LABS: Albumin Level 3.5 gm/dl (3.4-5.0); BUN Creatinine Ratio 22.2 (10-20); Calcium 8.8 mg/dl (8.5-10.1); Creatinine Clr Calc Pharmacy 149.5 ml/min; Est GFR (African American) 124.4; Est GFR (Non-African American) 107.3; Potassium 4.2 mmol/L (3.5-5.1)
[2019-03-10 20:57] LABS: Pregnancy Test, Serum Negative (Negative)
[2019-03-10 21:04] LABS: Albumin Globulin Ratio 0.9 (0.9-2); Bilirubin,Total 0.3 mg/dl (0.2-1); Globulin 3.8 gm/dl (2.5-4.0); Thyroid Stimulating Hormone 1.48 uIu/ml (0.300-4.500); Total Protein 7.3 gm/dl (6.4-8.2)
--- NOTE | 2019-03-10 21:50 | Emergency Department Note ---
Entered by Haydee Grimes acting as a scribe for Tobi Clancy MD History of Present Illness General Chief complaint: Mental Health Evaluation Stated complaint: DEPRESSED Time Seen by Provider: 03/10/19 19:10 Source: patient History of Present Illness Provider complaint: Worsening Depression Onset (ago): week(s) 1 Location: head Relieved By: + none Exacerbated By: + none Associated symptoms: + denies other symptoms (Abdominal pain, HI) and + other (Positive SI); no chest pain The patient is a 23 year old female who presents to the Emergency Room with complaints of worsening depression that began 1 week ago. The patient states that she has been feeling very depressed recently and believes that "her 3 kids and everyone around her deserve better." The patient states her symptoms are not relieved nor exacerbated by anything specific. The patient reports experiencing SI but denies having a specific plan. The patient denies experiencing any chest pain, abdominal pain, or homicidal ideation. The patient also denies taking medicine for her symptoms because it makes her feel tired. The patient notes that she has never been inpatient before but feels like she needs to be admitted today. 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 and A total of 10 systems reviewed and were otherwise negative Physical Exam Vital Signs Vital Signs - 24 hr 03/10/19 19:04 03/10/19 21:28 Temperature 36.6 C Temperature Source Oral Pulse Rate 95 H Pulse Rate [Left Finger] 71 Respiratory Rate 18 Respiratory Effort / Characteristics Non-Labored Spontaneous Respiratory Depth Normal Respiratory Pattern Regular Blood Pressure 125/86 Blood Pressure [Right Arm] 138/96 Blood Pressure Mean 99 Blood Pressure Mean [Right Arm] 110 Blood Pressure Position Sitting Pulse Oximetry 96 99 Oxygen Delivery Method Room Air Room Air Sepsis Recent Fever Within 48 Hours No Sepsis Action Taken by Nursing No Action Required GENERAL: Awake, alert, well-appearing, tearful on exam. HENT: Normocephalic, atraumatic. Oropharynx unremarkable. EYES: Normal conjunctiva. Sclera non-icteric. NECK: Supple. No nuchal rigidity. FROM. No JVD. RESPIRATORY: Clear to auscultation. CARDIAC: Regular rate, normal rhythm. Extremities warm and well perfused. Pulses equal. ABDOMEN: Soft, non-distended. No tenderness to palpation. No rebound or guarding. No masses. RECTAL: Deferred. MUSCULOSKELETAL: Chest examination reveals no tenderness. The back is symmetrical on inspection without obvious abnormality. There is no CVA tenderness to palpation. No joint edema. LOWER EXTREMITIES: Calves are equal size bilaterally and non-tender. No edema. No discoloration. NEURO: Normal sensorium. No sensory or motor deficits noted. SKIN: No rash or jaundice noted. Course Course 1913: Past medical records reviewed. The patient was evaluated in room B07. A complete history and physical exam was performed. 2314: The patient was accepted upstairs to [address]. Administered Medications Citalopram Hydrobromide (Celexa) 20 mg PO QAM [facility] Stop: 04/10/19 11:14 Last Admin: 03/12/19 09:26 Dose: 20 mg Documented by: [id number] Admin: 03/11/19 13:29 Dose: 20 mg Documented by: [id number] Discontinued Medications Influenza Virus Vaccine Quadrival (Flucelvax Quad Vaccine) 0.5 ml IM .ONCE ONE Stop: 03/11/19 08:01 Last Admin: 03/11/19 13:30 Dose: 0.5 ml Documented by: [id number] Medical Decision Making Differential Diagnosis Differential diagnosis: Etiologies such as psychiatric disorder, infection, hypoglycemia, electrolyte abnormalities, cardiac sources, intracerebral event, toxicological process, neurologic disorder, as well as others were entertained. Medical Records Attestation: I reviewed the patient's medical records. Home Medications Current Medication List: was personally reviewed by me Laboratory Data Attestation: I reviewed the patient's lab results. Result diagrams: 03/10/19 20:12 03/10/19 20:12 Lab Results 03/10/19 03/10/19 03/10/19 Range/Units 20:10 20:10 20:12 WBC (4.8-10.8) K/uL RBC (4.2-5.4) M/uL Hgb (12.0-16.0) g/dL Hct (37-47) % MCV (80-100) fL MCH (25-34) pg MCHC (32-36) g/dL RDW Std Deviation (36.4-46.3) fL RDW Coeff of Freda (11.5-14.5) % Plt Count (130-400) K/uL MPV (7.4-10.4) fL Immature Gran % (Auto) % Neut % (Auto) % Lymph % (Auto) % [place] % (Auto) % Eos % (Auto) % Baso % (Auto) % Immature Gran # (Auto) (0.00-0.02) K/uL Neut # (Auto) (1.4-6.5) K/uL Lymph # (Auto) (1.2-3.4) K/uL [place] # (Auto) (0.11-0.59) K/uL Eos # (Auto) (0-0.5) K/uL Baso # (Auto) (0-0.2) K/uL Sodium (136-145) mmol/L Potassium (3.5-5.1) mmol/L Chloride (98-107) mmol/L Carbon Dioxide (21-32) mmol/L Anion Gap (3-11) BUN (7-18) mg/dl Creatinine (0.6-1.2) mg/dl Est Cr Clr Drug Dosing ml/min Est GFR ( Amer) Est GFR (Non-Af Amer) BUN/Creatinine Ratio (10-20) Glucose (70-99) mg/dl Calcium (8.5-10.1) mg/dl Total Bilirubin (0.2-1) mg/dl AST (15-37) U/L ALT (12-78) U/L Alkaline Phosphatase (45-117) U/L Total Protein (6.4-8.2) gm/dl Albumin (3.4-5.0) gm/dl Globulin (2.5-4.0) gm/dl Albumin/Globulin Ratio (0.9-2) TSH (0.300-4.500) uIu/ml HCG, Qual Negative (Negative) Urine Color Yellow Urine Appearance Cloudy A (Clear) Urine pH 5.0 (4.5-7.5) Ur Specific Leonore 1.033 H (1.000-1.030) Urine Protein Negative (Negative) Urine Glucose (UA) Negative (Negative) Urine Ketones Negative (Negative) Urine Blood Negative (Negative) Urine Nitrite Negative (Negative) Urine Bilirubin Negative (Negative) Urine Urobilinogen Negative (Negative) Ur Leukocyte Esterase Negative (Negative) Urine WBC (Auto) 1-5 (0-5) /hpf Urine RBC (Auto) 0-4 (0-4) /hpf U Hyaline Cast (Auto) 1-5 (0-5) /lpf U Epithel Cells (Auto) >30 H (0-5) /lpf Urine Bacteria (Auto) 1+ H (Negative) Urine Mucus Present A (None Prsent) Salicylates (2.8-20) mg/dl Urine Opiates Screen Neg (Neg) Ur Methadone, Qual Neg (Neg) Acetaminophen (10-30) ug/ml Urine Barbiturates Neg (Neg) Ur Phencyclidine (PCP) Neg (Neg) U Amphetamin/Meth Scrn Neg (Neg) MDMA (Ecstasy) Screen Neg (Neg) U Benzodiazepines Scrn Neg (Neg) Ur Cocaine Metabolite Neg (Neg) U Marijuana (THC) Screen Neg (Neg) Ethyl Alcohol mg/dL (0-3) mg/dl 03/10/19 03/10/19 03/10/19 Range/Units 20:12 20:12 20:12 WBC 10.46 (4.8-10.8) K/uL RBC 4.63 (4.2-5.4) M/uL Hgb 13.8 (12.0-16.0) g/dL Hct 41.3 (37-47) % MCV 89.2 (80-100) fL MCH 29.8 (25-34) pg MCHC 33.4 (32-36) g/dL RDW Std Deviation 45.2 (36.4-46.3) fL RDW Coeff of Freda 13.8 (11.5-14.5) % Plt Count 267 (130-400) K/uL MPV 11.1 H (7.4-10.4) fL Immature Gran % (Auto) 0.3 % Neut % (Auto) 66.3 % Lymph % (Auto) 22.8 % [place] % (Auto) 5.6 % Eos % (Auto) 4.3 % Baso % (Auto) 0.7 % Immature Gran # (Auto) 0.03 H (0.00-0.02) K/uL Neut # (Auto) 6.94 H (1.4-6.5) K/uL Lymph # (Auto) 2.38 (1.2-3.4) K/uL [place] # (Auto) 0.59 (0.11-0.59) K/uL Eos # (Auto) 0.45 (0-0.5) K/uL Baso # (Auto) 0.07 (0-0.2) K/uL Sodium 140 (136-145) mmol/L Potassium 4.2 (3.5-5.1) mmol/L Chloride 108 H (98-107) mmol/L Carbon Dioxide 26 (21-32) mmol/L Anion Gap 5.0 (3-11) BUN 17 (7-18) mg/dl Creatinine 0.77 (0.6-1.2) mg/dl Est Cr Clr Drug Dosing 149.5 ml/min Est GFR ( Amer) 124.4 Est GFR (Non-Af Amer) 107.3 BUN/Creatinine Ratio 22.2 H (10-20) Glucose 106 H (70-99) mg/dl Calcium 8.8 (8.5-10.1) mg/dl Total Bilirubin 0.3 (0.2-1) mg/dl AST 12 L (15-37) U/L ALT 21 (12-78) U/L Alkaline Phosphatase 91 (45-117) U/L Total Protein 7.3 (6.4-8.2) gm/dl Albumin 3.5 (3.4-5.0) gm/dl Globulin 3.8 (2.5-4.0) gm/dl Albumin/Globulin Ratio 0.9 (0.9-2) TSH 1.480 (0.300-4.500) uIu/ml HCG, Qual (Negative) Urine Color Urine Appearance (Clear) Urine pH (4.5-7.5) Ur Specific Leonore (1.000-1.030) Urine Protein (Negative) Urine Glucose (UA) (Negative) Urine Ketones (Negative) Urine Blood (Negative) Urine Nitrite (Negative) Urine Bilirubin (Negative) Urine Urobilinogen (Negative) Ur Leukocyte Esterase (Negative) Urine WBC (Auto) (0-5) /hpf Urine RBC (Auto) (0-4) /hpf U Hyaline Cast (Auto) (0-5) /lpf U Epithel Cells (Auto) (0-5) /lpf Urine Bacteria (Auto) (Negative) Urine Mucus (None Prsent) Salicylates < 1.7 L (2.8-20) mg/dl Urine Opiates Screen (Neg) Ur Methadone, Qual (Neg) Acetaminophen < 2 L (10-30) ug/ml Urine Barbiturates (Neg) Ur Phencyclidine (PCP) (Neg) U Amphetamin/Meth Scrn (Neg) MDMA (Ecstasy) Screen (Neg) U Benzodiazepines Scrn (Neg) Ur Cocaine Metabolite (Neg) U Marijuana (THC) Screen (Neg) Ethyl Alcohol mg/dL (0-3) mg/dl 03/10/19 Range/Units 20:12 WBC (4.8-10.8) K/uL RBC (4.2-5.4) M/uL Hgb (12.0-16.0) g/dL Hct (37-47) % MCV (80-100) fL MCH (25-34) pg MCHC (32-36) g/dL RDW Std Deviation (36.4-46.3) fL RDW Coeff of Freda (11.5-14.5) % Plt Count (130-400) K/uL MPV (7.4-10.4) fL Immature Gran % (Auto) % Neut % (Auto) % Lymph % (Auto) % [place] % (Auto) % Eos % (Auto) % Baso % (Auto) % Immature Gran # (Auto) (0.00-0.02) K/uL Neut # (Auto) (1.4-6.5) K/uL Lymph # (Auto) (1.2-3.4) K/uL [place] # (Auto) (0.11-0.59) K/uL Eos # (Auto) (0-0.5) K/uL Baso # (Auto) (0-0.2) K/uL Sodium (136-145) mmol/L Potassium (3.5-5.1) mmol/L Chloride (98-107) mmol/L Carbon Dioxide (21-32) mmol/L Anion Gap (3-11) BUN (7-18) mg/dl Creatinine (0.6-1.2) mg/dl Est Cr Clr Drug Dosing ml/min Est GFR ( Amer) Est GFR (Non-Af Amer) BUN/Creatinine Ratio (10-20) Glucose (70-99) mg/dl Calcium (8.5-10.1) mg/dl Total Bilirubin (0.2-1) mg/dl AST (15-37) U/L ALT (12-78) U/L Alkaline Phosphatase (45-117) U/L Total Protein (6.4-8.2) gm/dl Albumin (3.4-5.0) gm/dl Globulin (2.5-4.0) gm/dl Albumin/Globulin Ratio (0.9-2) TSH (0.300-4.500) uIu/ml HCG, Qual (Negative) Urine Color Urine Appearance (Clear) Urine pH (4.5-7.5) Ur Specific Leonore (1.000-1.030) Urine Protein (Negative) Urine Glucose (UA) (Negative) Urine Ketones (Negative) Urine Blood (Negative) Urine Nitrite (Negative) Urine Bilirubin (Negative) Urine Urobilinogen (Negative) Ur Leukocyte Esterase (Negative) Urine WBC (Auto) (0-5) /hpf Urine RBC (Auto) (0-4) /hpf U Hyaline Cast (Auto) (0-5) /lpf U Epithel Cells (Auto) (0-5) /lpf Urine Bacteria (Auto) (Negative) Urine Mucus (None Prsent) Salicylates (2.8-20) mg/dl Urine Opiates Screen (Neg) Ur Methadone, Qual (Neg) Acetaminophen (10-30) ug/ml Urine Barbiturates (Neg) Ur Phencyclidine (PCP) (Neg) U Amphetamin/Meth Scrn (Neg) MDMA (Ecstasy) Screen (Neg) U Benzodiazepines Scrn (Neg) Ur Cocaine Metabolite (Neg) U Marijuana (THC) Screen (Neg) Ethyl Alcohol mg/dL < 3.0 (0-3) mg/dl Blood Pressure Blood Pressure Findings: Elevated blood pressure Blood Pressure Disposition: further management by hospitalist MDM Narrative This is a 23-year-old female who presents emergency department over concerns that she is depressed. The patient is requesting to be admitted. I did discuss her case with the [facility]. liaison. She was medically cleared by me. Patient is not . Patient was in agreement with the treatment plan and was accepted to [facility]. Impression & Plan Mood disorder Discharge Plan Visit Data *Final* Discharge Date/Time: 03/10/19 23:13 Chief Complaint: Mental Health Evaluation Stated Complaint: DEPRESSED ED Provider: Tobi Clancy Discharge Problem: Mood disorder Patient Disposition: Admitted As Inpatient Discharge Instructions Interventions: ED Discharge Assessment Last Done: 03/10/19 23:13 The scribe's documentation has been prepared under my direction and personally reviewed by me in its entirety. I confirm that the note above accurately reflects all work, treatment, procedures, and medical decision making performed by me.
[2019-03-11] MEDS ORDERED: BISMUTH SUBSALICYLATE PER ML OMNICELL CHARGE PO PRN (00:16)
[2019-03-11] MEDS ORDERED: SODIUM CHLORIDE 0.65% NA SOLN 45 ML (OCEAN) PRN (00:16)
[2019-03-11] MEDS ORDERED: ALUMINUM/MAGNESIUM SUSP 30 ML UDC PO PRN (00:16)
[2019-03-11] MEDS ORDERED: MAGNESIUM HYDROXIDE SUSP 30 ML UDC PO PRN (00:16)
[2019-03-11] MEDS ORDERED: ACETAMINOPHEN 325 MG TAB PO PRN (00:16)
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
[2019-03-11] MEDS: CITALOPRAM 20 MG TAB PO SCH (13:29)
[2019-03-12] MEDS: CITALOPRAM 20 MG TAB PO SCH (09:26)
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
[2019-03-13] MEDS: CITALOPRAM 20 MG TAB PO SCH (09:24)
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
[2019-03-14] MEDS: CITALOPRAM 20 MG TAB PO SCH (10:27)
[2019-03-15] MEDS: CITALOPRAM 20 MG TAB PO SCH (09:14)
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
[2019-03-16] MEDS: CITALOPRAM 20 MG TAB PO SCH (09:00)
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
[2019-03-17] MEDS: CITALOPRAM 20 MG TAB PO SCH (09:34)
[2019-03-17] MEDS ORDERED: DESTROY THIS MEDICATION ONE (13:52)
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
== END 2019-03-17 14:23 | disposition home or self-care (01) | DRG 885 ==
LOC: ED 19:03 → 3S 22:59

== ENCOUNTER 2024-06-20 11:45 | Inpatient (IN) ==
--- NOTE | 2024-06-20 12:32 | Emergency Department Note ---
Impression & Plan Weakness, Fatigue, Anemia, Low iron ED Provider Note NAME: ANA ROSAS AGE: 28 SEX: F : 1995 ARRIVES VIA: Walk-In INFORMANT: [Patient][] ED PROVIDER(S): [Cesario Elena MD] CHIEF COMPLAINT: Weakness, abnormal labs HISTORY OF PRESENT ILLNESS: The patient is a 28-year-old female who has felt weak and not quite herself. She has been tired for over a year but things have worsened lately. She went to a doctor's appointment yesterday. She was called and told that her outpatient lab work showed a hemoglobin that was quite low at 5.5. She was referred to the ER. The patient denies any black or bloody stool. She has never had upper or lower GI bleeding. She did take iron for a while but sparingly. The patient states that she has not had fever, she feels weak all the time, she thought she was depressed, that is why she went to the doctor's office. Previous history of gastric bypass. Of note, she does have fairly heavy menstrual cycles, she feels worse during the time of her menstrual cycle. PMHx/PSHx/Social Hx: See Below PHYSICAL EXAM: GENERAL: Patient is in no acute distress. HEENT: No acute trauma, normocephalic atraumatic, mucous membranes moist, no nasal congestion. NECK: No stridor, no adenopathy, no meningismus, trachea is midline. LUNGS: Clear to auscultation bilaterally, no wheeze, no rhonchi, breath sounds equal. HEART: 2/6 systolic murmur, regular rate and rhythm. ABDOMEN: Soft, nontender, no peritonitis. EXTREMITIES: No cyanosis, full range of motion of all the joints without pain or difficulty. NEUROLOGIC: Oriented x 3, no acute motor or sensory deficits, no focal weakness. SKIN: No jaundice, no diaphoresis. Quite pale. Rectal: Scant stool present, heme-negative. Female bull fiddle player present. DIFFERENTIAL DIAGNOSIS: Upper or lower GI bleeding, iron deficiency, anemia, electrolyte imbalance, viral insufficiency, among others. EMERGENCY DEPARTMENT PROCEDURES: MEDICAL DECISION MAKING: There is no leukocytosis. The patient is quite anemic with a hemoglobin of 4.8. I did perform a rectal exam, the stool was heme-negative. There was a normal platelet count. Renal panel testing did not show renal failure. There was a mildly low potassium. Iron was quite low at 16. No concerning liver enzyme elevation. Patient appeared to be in a euthyroid state. testing was negative. ECG showed a sinus rhythm, no ischemia. On exam, the patient was quite pale, her stool was heme-negative. She was not hypotensive or tachycardic. The patient received IV Pepcid and IV Protonix. Given the markedly low hemoglobin, the patient was in need of transfusion. She did sign consent for a packed red blood cell transfusion. I ordered for 2 units of packed cells to be transfused here in the ED. Given the findings, given the critically low hemoglobin, admission is warranted. I spoke with the patient and case management, the on-call hospitalist was consulted. Further workup is warranted to help delineate the cause for her profound anemia. Prior/Outside records/notes reviewed: Outpatient laboratory work from yesterday showing a hemoglobin value of 5.5. ECG per my interpretation: Indication was weakness. The ECG shows what appears to be a normal sinus rhythm with a rate of 67. There is no acute ST elevation, no PVCs. The QTc is 437. Continuous Cardiac Monitoring per my interpretation: An order was placed for continuous cardiac monitoring. The monitor shows a rate of 80 with normal sinus rhythm. Imaging/x-ray results per my interpretation: Chronic Medical/Social conditions affecting care: History of gastric bypass. Care/Management discussed with: Case management, the on-call hospitalist. Level of care consideration(s): After review of the information above and other included data: --I believe the patient requires escalation of care to admission Critical Care Note: I have personally spent 43 minutes of critical care time in the direct management of this patient. This includes bedside care, interpretation of diagnostic studies, and testing, discussion with consultants, patient, and family members, and other required patient management activities. This 43 minutes is in excess of all separately billable procedures. DISPOSITION: Admission Past Med/Surg History Problem List (Updated 06/20/24 @ 20:24 by Cesario Elena MD) Low iron (Acute) Anemia (Acute) Fatigue (Acute) Weakness (Acute) Blood glucose elevated Vitamin D deficiency Menorrhagia with regular cycle Mood disorder (Acute) Obesity Frequent UTI (Chronic) 29 weeks gestation of 33 weeks gestation of Cramping affecting , antepartum Exudative tonsillitis (Acute) Pelvic pain (Acute) (Acute) labor in third trimester Pyelonephritis (Acute) Subchorionic hematoma (Acute) Urinary tract infection (Acute) Vaginal bleeding during , antepartum Medical History Iron deficiency anemia Depression Pyelonephritis Subchorionic hematoma Frequent UTI Anxiety Surgical History (Updated 06/20/24 @ 16:51 by GUI Ta) H/O gastric bypass History of tubal ligation Family History Other No pertinent family history in first degree relatives Social History Smoking Status: Never smoker Hx Alcohol Use: No Hx Substance Use: No Preferred Language: Chadian Communication Ability: Effective Accuracy Expert Required: No Beliefs That Will Affect Care: None Feels Safe at Home: Yes Assistive Devices: Glasses Allergies Allergies Allergy/AdvReac Type Severity Reaction Status Date / Time No Known Allergies Allergy 0 Verified 01/28/21 19:05 Home Meds Home Medications Medication Instructions Recorded Confirmed venlafaxine 37.5 mg 37.5 mg PO UD 06/20/24 06/20/24 capsule,extended release 24 hr Results & Data (ED) Vital Signs Vital Signs - 24 hr 06/20/24 11:49 06/20/24 12:52 06/20/24 13:24 Temperature 36.6 C Temperature Source Temporal Artery Scan Pulse Rate 98 H 85 Pulse Rate [Right Finger] 80 Respiratory Rate 18 16 Respiratory Effort / Characteristics Non-Labored Spontaneous Non-Labored Spontaneous Respiratory Depth Normal Normal Respiratory Pattern Regular Regular Blood Pressure 112/71 Blood Pressure [Right Arm] 110/76 Blood Pressure Mean 84 Blood Pressure Mean [Right Arm] 87 Pulse Oximetry 100 97 Oxygen Delivery Method Room Air Room Air Sepsis Recent Fever Within 48 Hours No Sepsis New/Unexplained Change in Mental Status No Sepsis Action Taken by Nursing No Action Required Home Medications Current Medication List: was personally reviewed by me Laboratory Data Attestation: I reviewed the patient's lab results. 06/20/24 12:30 06/20/24 12:30 Lab Results 06/20/24 06/20/24 Range/Units 12:30 14:41 WBC 5.42 (4.8-10.8) K/ul RBC 2.84 L (4.20-5.40) M/uL Hgb 4.8 L* (12.0-16.0) g/dl Hct 19.3 L* (37.0-47.0) % MCV 68.0 L (80.0-100.0) fL MCH 16.9 L (25.0-34.0) pg MCHC 24.9 L (32.0-36.0) g/dL RDW Std Deviation 50.4 H (36.4-46.3) fL RDW Coeff of Freda 21.0 H (11.5-14.5) % Plt Count 307 (130-400) K/uL MPV 10.9 (9.4-12.4) fL Neutrophils % (Manual) 57 % Lymphocytes % (Manual) 33 % Monocytes % (Manual) 4 % Eosinophils % (Manual) 6 % Neutrophils # (Manual) 3.09 (1.40-6.50) K/uL Total Absolute Neuts 3.09 (1.4-6.5) K/uL Lymphocytes # (Manual) 1.79 (1.2-3.4) K/uL Total Abs Lymphocytes 1.79 (1.2-3.4) K/uL Monocytes # (Manual) 0.22 (0.11-0.59) K/uL Eosinophils # (Manual) 0.33 (0-0.50) K/uL Polychromasia 3+ Anisocytosis Present Microcytosis Present Tear Drop Cells 1+ Sodium 139 (136-145) mmol/L Potassium 3.3 L (3.5-5.1) mmol/L Chloride 108 H (98-107) mmol/L Carbon Dioxide 22 (21-32) mmol/L Anion Gap 9 (3-11) BUN 13 (6-23) mg/dl Creatinine 0.68 (0.6-1.2) mg/dl Est Cr Clr Drug Dosing 111.1 ml/min eGFR 120.08 BUN/Creatinine Ratio 19.1 (10-20) Glucose 193 H (70-99(Fasting)) mg/dl Calcium 8.0 L (8.6-10.3) mg/dl Magnesium 2.0 (1.7-2.4) mg/dl Iron 16 L (35-150) mcg/dl Total Bilirubin 0.3 (0.2-1.0) mg/dl AST 12 L (13-39) U/L ALT 7 (7-52) U/L Alkaline Phosphatase 48 (34-104) U/L Total Protein 6.4 (6.0-8.3) gm/dl Albumin 4.0 (3.4-5.0) gm/dl Globulin 2.4 L (2.5-4.0) gm/dl Albumin/Globulin Ratio 1.7 (0.9-2) TSH 0.544 (0.300-4.500) uIu/ml HCG, Qual Negative (Negative) Blood Type O Positive Blood Type Recheck O Positive Antibody Screen NEGATIVE Crossmatch See Detail Administered Medications Acetaminophen (Acetaminophen 325 Mg Tab) 650 mg PO Q4H PRN PRN Reason: pain/fever Stop: 07/20/24 18:19 Last Admin: 06/20/24 19:20 Dose: 650 mg Documented By: MLM Discontinued Medications Pantoprazole Sodium (Protonix) 40 mg in 10 mls @ 5 mls/min IV NOW ONE Stop: 06/20/24 12:26 Last Admin: 06/20/24 12:50 Dose: 5 mls/min Documented By: MR Famotidine (Pepcid 20mg Iv Push) 20 mg in 5 mls @ 2.5 mls/min IV NOW STA Stop: 06/20/24 12:26 Last Admin: 06/20/24 12:50 Dose: 2.5 mls/min Documented By: MR Potassium Chloride (Potassium Chloride Crtab 20 Meq Tabcr) 40 meq PO NOW STA Stop: 06/20/24 14:41 Last Admin: 06/20/24 15:22 Dose: 40 meq Documented By: VETOD Discharge Plan Visit Data Chief Complaint: Abnormal Labs/Diagnostic Testing Stated Complaint: VERY LOW IRON, DOC REF ED Provider: Cesario Elena Discharge Problem: Weakness, Fatigue, Anemia, Low iron Patient Disposition: Admitted As Inpatient Condition: Serious Discharge Instructions Interventions: ED Discharge Assessment Last Done: 06/20/24 17:40 Discharge Problem: Fatigue Qualifiers: Fatigue type: unspecified Qualified Code(s): R53.83 - Other fatigue Anemia Qualifiers: Anemia type: unspecified type Qualified Code(s): D64.9 - Anemia, unspecified
[2024-06-20] MEDS: FAMOTIDINE 20MG IV PUSH 20 MG/5 ML SYR IV STA (12:50)
[2024-06-20] MEDS: PANTOprazole 40 MG/10 ML SYR IV ONE (12:50)
[2024-06-20 13:02] LABS: Albumin Globulin Ratio 1.7 (0.9-2); BUN Creatinine Ratio 19.1 (10-20); Bilirubin,Total 0.3 mg/dl (0.2-1.0); Creatinine Clr Calc Pharmacy 111.1 ml/min; Globulin 2.4 gm/dl (2.5-4.0); Potassium 3.3 mmol/L (3.5-5.1); Total Protein 6.4 gm/dl (6.0-8.3)
[2024-06-20 13:09] LABS: Pregnancy Test, Serum Negative (Negative)
[2024-06-20] MEDS ORDERED: SODIUM CHLORIDE 0.9% 100 ML IV PRN (13:13)
[2024-06-20 13:14] LABS: Hematocrit (blood only) 19.3 % (37.0-47.0); Hemoglobin 4.8 g/dl (12.0-16.0); Mean Corpuscular Hemoglobin 16.9 pg (25.0-34.0); Mean Corpuscular Hgb Conc 24.9 g/dL (32.0-36.0); Mean Platelet Volume 10.9 fL (9.4-12.4); Platelet Count 307 K/uL (130-400); RDW Standard Deviation 50.4 fL (36.4-46.3); Red Blood Count 2.84 M/uL (4.20-5.40); White Blood Count 5.42 K/ul (4.8-10.8)
[2024-06-20 13:16] LABS: Thyroid Stimulating Hormone 0.544 uIu/ml (0.300-4.500)
[2024-06-20 13:33] LABS: ALC (manual) 1.79 K/uL (1.2-3.4); ANC (manual) 3.09 K/uL (1.4-6.5); Anisocytosis Present; Eosinophils # (manual) 0.33 K/uL (0-0.50); Eosinophils % (manual) 6 %; Lymphocytes # (manual) 1.79 K/uL (1.2-3.4); Lymphocytes % (manual) 33 %; Microcytosis Present; Monocytes # (manual) 0.22 K/uL (0.11-0.59); Monocytes % (manual) 4 %; Neutrophils # (manual) 3.09 K/uL (1.40-6.50); Neutrophils % (manual) 57 %; Polychromasia 3+; Tear Drop Cells 1+
--- NOTE | 2024-06-20 14:28 | Electrocardiogram Report ---
Test Reason : Blood Pressure : */* mmHG Vent. Rate : 67 BPM Atrial Rate : 66 BPM P-R Int : * ms QRS Dur : 100 ms QT Int : 414 ms P-R-T Axes : * 39 27 degrees QTcB Int : 437 ms Normal sinus rhythm Nonspecific T wave abnormality Abnormal ECG When compared with ECG of 19-Nov-2020 12:47, No significant change Confirmed by Zack Preston ([id number]) on 06/20/2024 2:27:56 PM Referred By: REFERRED SELF Confirmed By: Zack Preston
[2024-06-20] MEDS ORDERED: FUROSEMIDE INJ 20 MG/2 ML VIAL IV ONE ×2 (15:00→20:00)
[2024-06-20] MEDS: POTASSIUM CHLORIDE CRTAB 20 MEQ TABCR PO STA (15:22)
--- NOTE | 2024-06-20 15:22 | History & Physical Report ---
<Statement entered by Sonido Obrien DO - 06/20/24 18:12> I have seen and examined the patient and have discussed the case with the advance practice provider. I have reviewed the advanced practitioner's documentation, and I agree with, and take responsibility for that plan of care. Patient had progressive weakness, fatigue for close to 1 year. Shortness of breath and inability to do basic activities of daily living without significant shortness of breath is what prompted her to come to the emergency room today. Gives history of extensive menorrhagia. Dietary intake of iron probably minimal at best. Question whether she absorbs iron well with her history of gastric bypass. Discussed with the patient if she ever had her menses managed with hormone replacement therapy. She denies ever taking any medication for her menses. States she has had a tubal ligation and that is her control. She asked whether she would be a candidate for hysterectomy. Discussed getting CLIENT INSIGHTS CONSULTANT consult while she was here in the hospital and she is agreeable. Transfuse PRBCs, IV iron. Discussed plan of care as outlined below I spent a total of 18 minutes coordinating, documenting, and providing care for this patient excluding time spent by another provider/QHP. Date of Service June 20, 2024 Assessment & Plan (1) Iron deficiency anemia: Plan: 2 units PRBC initiated in ED, recheck H &H 2 hours post transfusion Lasix 20 mg IV x 1 post-transfusion IV Iron replacement. Consider IV Iron prior to discharge. Epic revealed Iron 14, TIBC 459, Ferritin 2, Tsat 3% Heme/Onc referral has already been initiated by PCP- encourage patient to follow-up with this appointment following this admission (2) Menorrhagia with regular cycle: Plan: Not currently on control but has a history of tubal ligation. Appreciate input from [employer] SPANISH TEACHER. Discussed case with Dr. Cherry specifically etiology of anemia, menorrhagia vs malabsorption (3) Hypokalemia: Plan: Potassium 3.3 today. Will replace with oral KCL replacement. Will recheck with AM labs (4) H/O gastric bypass: Plan: Current state of anemia may be a combination of chronic blood loss associated with menses and malabsorption of essential nutrients. Will monitor daily labs and replace essential vitamins as needed. No further intervention or consults are needed as this time as the patient is tolerating current diet. (5) Vitamin D deficiency: Plan: Upon review of past labs, Vitamin D was low at yesterday's PCP appt Vit D 13, last checked in 2020 at 22. It's reasonable to consider vitamin D supplemen tation at discharge as the patient is likely experiencing nutrient deficiencies relating to history of gastric pass. (6) Blood glucose elevated: Plan: Random glucose 193 today. Last A1C in 2020 was 5. Will check A1C with AM labs. If A1C is elevated, will consider lifestyle modifications vs pharmacological management if needed. (7) Depression: Plan: Continue venlafaxine as inpatient No further intervention needed at this time, pending patient report of mood following anemia correction Plan Disp: Admit to Med Surg DVT Prophylaxis: None indicated Code Status: Full Patient was seen and examined in collaboration with Dr. Obrien. Please see addendum. I spent a total of 45 minutes coordinating, documenting and providing care for this patient excluding time spent in the performance of separately billed se rvices or time spent by another provider/QHP. History of Present Illness Chief Complaint: Depression, fatigue x 1 year Primary Care Provider: Cara Kamara PA-C 28 year old female with past medical history of gastric bypass surgery, d epression, anxiety, presenting to the emergency room with heavy menstrual bleeding and worsening depression, fatigue and dizziness. Symptoms began over a year ago and have progressively worsened to the point of not being able to adequately care for her children and home. Yesterday, she saw her PCP for an acute visit, mostly for depression, and was prescribed venlafaxine. Lab work drawn, Hgb 5.5 and severe MAYD. Currently on menses, day 2 with heavy bleeding with clots. Reports frequency heavy menses lasting 5 days. Lab work in ED revealed: RBC 2.84, Hgb 4.8, Hct 19, MCV 68, MCHC 24.9. Denies weight loss, illnesses, fevers, hematuria, hematochezia, breathing difficulty,shortness of breath, palpitations, chest pain, abdominal pain, N/V, bowel changes, skin changes. History obtained from patient and external chart review. Allergies Allergy/AdvReac Type Severity Reaction Status Date / Time No Known Allergies Allergy 0 Verified 01/28/21 19:05 Home Medications Medication Instructions Recorded Confirmed Type venlafaxine 37.5 mg 37.5 mg PO UD 06/20/24 06/20/24 History capsule,extended release 24 hr Past Med/Surg History Problem List (Updated 06/20/24 @ 16:51 by GUI Ta) Blood glucose elevated Vitamin D deficiency Menorrhagia with regular cycle Mood disorder (Acute) Obesity Frequent UTI (Chronic) 29 weeks gestation of 33 weeks gestation of Cramping affecting , antepartum Exudative tonsillitis (Acute) Pelvic pain (Acute) (Acute) labor in third trimester Pyelonephritis (Acute) Subchorionic hematoma (Acute) Urinary tract infection (Acute) Vaginal bleeding during , antepartum Medical History (Updated 06/20/24 @ 16:51 by GUI Ta) Iron deficiency anemia Depression Pyelonephritis Subchorionic hematoma Frequent UTI Anxiety Surgical History (Updated 06/20/24 @ 16:51 by GUI Ta) H/O gastric bypass History of tubal ligation Family History Other No pertinent family history in first degree relatives Social History Smoking Status: Never smoker Preferred Language: Japanese Communication Ability: Effective Handkerchief Cutter Required: No Beliefs That Will Affect Care: None Feels Safe at Home: Yes Assistive Devices: Glasses Review of Systems Review of Systems: All systems reviewed & are unremarkable except as noted in HPI & below Physical Exam Physical Exam: VITALS: Reviewed. WEIGHT/BMI reviewed. GEN: Pale appearance, well-developed and nourished, NAD. PSYCH: Good Judgment. AOx3. Normal memory, mood, and affect. HEENT -Head: NC/AT; -Eyes: PERRL, EOMI. No discharge or redn ess; -Ears: External ears are normal. Normal TMs. -Nose: Normal nares. -Mouth and throat: MMM. Normal gums, muc prateek, palate,. Good dentition. NECK: Supple, with no masses. CV: S1, S2 without murmur, clicks, extra sounds. Warm extremities, strong pulses throughout LUNGS: Clear and equal bilaterally. Effort unlabored. ABD: Soft, NT/ND, NBS, no masses or organomegaly. : N/A SKIN: Warm, well perfused. No skin rashes or abnormal lesions. MSK: No deformities, moving all extremities without difficulty EXT: No clubbing, cyanosis, or edema. NEURO: Ambulating with no limitations. Normal muscle strength and tone. No focal deficits. Results & Data Results & Data Vital Signs (Past 12 Hours) Vital Signs Temp Pulse Pulse Resp BP BP Pulse Ox 06/20/24 13:24 85 06/20/24 12:52 80 16 110/76 97 06/20/24 11:49 36.6 C 98 H 18 112/71 100 O2 Del Method 06/20/24 13:24 06/20/24 12:52 Room Air 06/20/24 11:49 Room Air Laboratory Results I have independently reviewed and interpreted patient's admitting labs including CBC, CMP, Vitamin D. ECG Additional Comments: I have independently reviewed and interpreted patient's admitting EKG which revealed: NSR with ventricular rate 67 bpm COVID-19 Results Results COVID- Adm Lab Results: RBC 2.84 M/uL (4.20-5.40) L 06/20/24 WBC 5.42 K/ul (4.8-10.8) 06/20/24 Hgb 4.8 g/dl (12.0-16.0) L* 06/20/24 Hct 19.3 % (37.0-47.0) L* 06/20/24 Plt Count 307 K/uL (130-400) 06/20/24 ANC 3.09 K/uL (1.4-6.5) 06/20/24 ALC 1.79 K/uL (1.2-3.4) 06/20/24 Neutrophils % (Manual) 57 % 06/20/24 Lymphocytes % (Manual) 33 % 06/20/24 Monocytes % (Manual) 4 % 06/20/24 Eosinophils % (Manual) 6 % 06/20/24 Neutrophils # (Manual) 3.09 K/uL (1.40-6.50) 06/20/24 Lymphocytes # (Manual) 1.79 K/uL (1.2-3.4) 06/20/24 Monocytes # (Manual) 0.22 K/uL (0.11-0.59) 06/20/24 Eosinophils # (Manual) 0.33 K/uL (0-0.50) 06/20/24 Polychromasia 3+ 06/20/24 Anisocytosis Present 06/20/24 Microcytosis Present 06/20/24 Tear Drop Cells 1+ 06/20/24 Na 139 mmol/L (136-145) 06/20/24 K 3.3 mmol/L (3.5-5.1) L 06/20/24 Cl 108 mmol/L (98-107) H 06/20/24 CO2 22 mmol/L (21-32) 06/20/24 Anion Gap 9 (3-11) 06/20/24 BUN 13 mg/dl (6-23) 06/20/24 Creatinine 0.68 mg/dl (0.6-1.2) 06/20/24 BUN/Creatinine Ratio 19.1 (10-20) 06/20/24 Glucose Level 193 mg/dl (70-99(Fasting)) H 06/20/24 Ca 8.0 mg/dl (8.6-10.3) L 06/20/24 Total Bilirubin 0.3 mg/dl (0.2-1.0) 06/20/24 AST/SGOT 12 U/L (13-39) L 06/20/24 ALT/SGPT 7 U/L (7-52) 06/20/24 Alkaline Phosphatase 48 U/L (34-104) 06/20/24 Total Protein 6.4 gm/dl (6.0-8.3) 06/20/24 Albumin 4.0 gm/dl (3.4-5.0) 06/20/24 Globulin 2.4 gm/dl (2.5-4.0) L 06/20/24 Albumin/Globulin Ratio 1.7 (0.9-2) 06/20/24 Code Status & VTE Plan Code Status Full code VTE Prophylaxis Plan VTE Prophylaxis will be ordered: No Reason for no VTE drug order: Contraindicated (1) Iron deficiency anemia Iron deficiency anemia type: chronic blood loss Qualified Code(s): D50.0 - Iron deficiency anemia secondary to blood loss (chronic) (7) Depression Active/Remission status: currently active Depression Type: major depressive disorder Major depression episode severity: severe Major depression recurrence: recurrent Psychotic features: without psychotic features Qualified Code(s): F33.2 - Major depressive disorder, recurrent severe without psychotic features
--- NOTE | 2024-06-20 15:59 | OB/GYN Consultation ---
Date of Consultation June 20, 2024 Assessment & Plan (1) Menorrhagia with regular cycle: Patient declined pelvic exam at this time as she has a tampon in she does report her bleeding is getting better though it started last night and was fairly heavy she also reports that she has been feeling this way for over a year and a half and finally came to her doctor she thought she had fatigue or depression. She is severely anemic with a very low hemoglobin the medical team is admitting her and giving packed red blood cells per transfusion protocol Patient has had a prior gastric bypass surgery. While I think her periods are heavy they are not described in the context that typically would bring a hemoglobin this low (4.8). Would recommend monitoring closely with the DERMATOLOGY PHYSICIAN ASSISTANT team I will order an ultrasound to rule out anatomic pathology but already her bleeding seems to be slowing if the bleeding does not slow we can give oral progesterone and the taper but considering her periods usually last 24 hours and she is approaching that time already by the time of seeing her I think we can wait at this time The patient inquired about treatment options I reviewed outpatient we may consider Mirena patient says she may desire hysterectomy she has had a tubal and finds her menses have a again followed closely suggest that the anemia is likely multifactorial with the menses only being a contributor not necessarily the primary cause total time spent [id number] with the patient 55 min History of Present Illness History of Present Illness Patient patient known distantly to our group was seen in 2018 and had a tubal sterilization with Dr. Coto 2 previous children and 1 miscarriage both deliveries were at 29 and 33 weeks patient presented to the emergency room feeling extremely weak lethargic after being seen by her regular doctor it was found she was significantly anemic her menses are very heavy Patient does report having heavy menses however her menses are only heavy for 1 day a month and they are regular she does pass some clots and she changes a tampon every 1 to 1-1/2 hours she reports some moodiness during her cycle which is worse at the time of menstruation. Allergies Allergy/AdvReac Type Severity Reaction Status Date / Time No Known Allergies Allergy 0 Verified 01/28/21 19:05 Home Medications Medication Instructions Recorded Confirmed Type venlafaxine 37.5 mg 37.5 mg PO UD 06/20/24 06/20/24 History capsule,extended release 24 hr Patient History Medical History Anxiety Depression Frequent UTI Obesity Pyelonephritis Subchorionic hematoma Surgical History H/O gastric bypass Family History Other No pertinent family history in first degree relatives Social History Smoking Status: Never smoker Preferred Language: Cook Islander Communication Ability: Effective Crime Scene Examiner Required: No Beliefs That Will Affect Care: None Feels Safe at Home: Yes Assistive Devices: Glasses Physical Exam Constitutional: WD/WN, vitals as above well developed and well nourished Respiratory: normal respiratory effort, lungs clear to auscultation normal respiratory effort Cardiovascular: RRR, no murmur, no edema Gastrointestinal (Abdomen): normal bowel sounds, soft, nontender, no hepatosplenomegaly Results & Data Vital Signs (Past 12 Hours) Vital Signs Temp Pulse Pulse Resp BP BP Pulse Ox 06/20/24 13:24 85 06/20/24 12:52 80 16 110/76 97 06/20/24 11:49 97.9 F 98 H 18 112/71 100 O2 Del Method 06/20/24 13:24 06/20/24 12:52 Room Air 06/20/24 11:49 Room Air PG Care Time/CCT Total # of Minutes Spent Total Time Spent with Patient: Total time spent is greater than 50% in coordination of care (as documented) at patient's floor/unit and/or counseling patient: Coding Level of Care Code 86919 IN/OBS CONSULT LVL 3,45M Diagnoses Menorrhagia with regular cycle N92.0
--- NOTE | 2024-06-20 17:16 | Ultrasound Report ---
Clinical History: Heavy vaginal bleeding Findings: Transabdominal and transvaginal pelvic sonography was performed. The endometrial stripe measures 3 mm, within normal limits. No uterine mass lesion is seen. Overall, the uterus measures 10.6 x 4.7 x 4.1 cm in size. There are nabothian cysts, the largest a 1.3 cm septated cyst The left ovary measures 3 x 2.5 x 1.7 cm and appears normal. The right ovary measures 2.7 x 1.9 x 1.8 cm and appears normal also. Vascular flow was detected within both ovaries No free fluid is seen within the pelvis. The urinary bladder appears unremarkable. Impression: 1. Nabothian cysts 2. Otherwise unremarkable pelvic sonogram Electronically signed by Den Perez 06-20-2024 5:16 PM
[2024-06-20] MEDS ORDERED: ONDANSETRON INJ 2 MG/ML 2 ML VIAL IV PRN (18:20)
[2024-06-20] MEDS ORDERED: VENLAFAXINE HCL XR 37.5 MG CAPXR PO SCH (18:20)
[2024-06-20] MEDS ORDERED: ALUMINUM/MAGNESIUM SUSP 30 ML UDC PO PRN (18:20)
[2024-06-20] MEDS: ACETAMINOPHEN 325 MG TAB PO PRN (19:20)
[2024-06-21] MEDS: FUROSEMIDE INJ 20 MG/2 ML VIAL IV ONE (00:09)
--- OUTSIDE RECORDS SUMMARY | 2024-06-21 00:39 | External Medical Summary | Summary of Care ---
Author Name Unknown Organization [facility] Address [address] [place] [address] Phone [phone] Care Team Providers Care Wood Milling Machine Hand Name Role Phone Unavailable Primary Care Provider Unavailabl e Reason for Referral * Evaluate & Treat - Unlimited Visits (Within 3 days (urgent)) - Authorized Specialty Diagnoses / Procedures Referred By Contbernice t Referred To Contact Hematology/Oncology / Hematology Oncology Diagnoses Iron deficiency anemia, unspecified iron deficiency anemia type Russel Zamorano CRNP [address] [place], [place] [address] [address] Phone: tel: fax: Referral ID Status Reason Start Date Expiration Date Visits Requested Visits Authorized [id number] Authorized Specialty Services Required 06/20/[phone] Question Answer Referral Priority Within 3 days (urgent) Where should this appointment be scheduled? [facility] Reason for Referral Elevated or Low Iron Comments Severe iron deficiency anemia. Hx of anemia and not currently on any replacement. Symptomatic. Reason for Visit * Reason Onset Date Comments Test Results 06/20/2024 Encounter Details Date Type Department Care Team (Late st Contact Info) Description 06/20/[address] [facility] [address] [place] [address] Rohith Ameczua MD [address] [place] [phone] Test Results Allergies No known active allergiesdocumented as of this encounter (statuses as of 06/20/2024) Medications Venlafaxine HCl ER 37.5 MG Oral Capsule Extended Release 24 Hour (Effexor XR)Indications: FRANCISCO JAVIER (generalized anxiety disorder),Moder ate episode of recurrent major depressive disorder (HCC),PMDD (premenstrual dysphoric disorder) Take 1 Capsule by mouth in the morning. Do not cut, crush or chew. 30 Capsule 5 06/19/2024 Active documented as of this encounter (statuses as of 06/20/2024) Active Problems Problem Noted Date Diagnosed Date Postoperative intestinal malabsorption 2 History of Ana María-en-Y gastric bypass 12/22/2020 Assessment & Plan (06/19/2024 4:02 PM EDT): Orders: COMPREHENSIVE METABOLIC PANEL; Future VITAMIN B12; Future Morbid obesity due to excess calories 04/01/2020 FRANCISCO JAVIER (generalized anxiety disorder) 04/01/2020 Assessment & Plan (06/19/2024 4:02 PM EDT): - will update some labs - start Effexor - discussed if wishing to pursue a mood stabilizer I would defer that to psychiatry / recommend re-establishing with [facility] and can always place a new referral if needed - agreeable to behavioral health supportive employment case manager to discuss other resources Orders: CBC WITH WBC DIFFERENTIAL AND ANEMIA REFLEX WORKUP; Future COMPREHENSIVE METABOLIC PANEL; Future IRON SCREEN, INCLUDING TIBC; Future TSH WITH FREE T4 IF INDICATED; Future 25-HYDROXY VITAMIN D; Future VITAMIN B12; Future Venlafaxine HCl ER 37.5 MG Oral Capsule Extended Release 24 Hour (Effexor XR); Take 1 Capsule by mouth in the morning. Do not cut, crush or chew. POPULATION HEALTH REFERRAL OP BMI 45.0-49.9, adult 08/28/2018 History of herpes genitalis 11/23/2014 Respiratory abnormality 09/14/2014 Overview (05/04/2020): In cold or heat sometimes, ? Asthma. Very rare ATTN DEFIC NONHYPERACT documented as of this encounter (statuses as of 06/20/2024) Resolved Problems Problem Noted Date Diagnosed Date Resolved Date Anemia 06/19/2024 06/19/2024 Cat bite 06/19/2024 06/19/2024 Cramping affecting , antepartum 06/19/2024 06/19/2024 labor in third trimester 06/19/2024 06/19/2024 Exudative tonsillitis 06/19/20242024 Hypokalemia 06/19/2024 06/19/2024 Influenza A 06/19/2024 06/19/2024 Injury of toenail of left foot 06/19/2024 06/19/2024 Kidney stone 06/19/2024 06/19/2024 Pelvic pain 06/19/2024 06/19/2024 Vaginal bleeding during , antepartum 06/20/1906/19/2024 Subchorionic hematoma 06/19/20242024 06/19/2024 06/19/2024 Pneumoperitoneum 06/19/2024 06/19/2024 Acute dehydration 06/19/2024 06/19/2024 Rib pain 04/30/2023 06/19/2024 Eye symptoms 08/17/2022 06/19/2024 Depression 04/01/2020 04/01/2020 Prediabetes 08/28/2018 06/03/2020 Body mass index (BMI) of 45. 0 to 49.9 in adult 03/04/2018 08/28/2018 Overview: Per Obesity protocol #1 - bmi= 40.39 10/25/15 Anxiety 02/28/2016 05/04/2020 Adult BMI 40.0-44.9 kg/sq m 10/25/2015 03/08/2018 Overview (10/25/2015): bmi= 40.39 10/25/15 Mild preeclampsia 09/27/2015 02/25/2018 S/P repeat low transverse 09/23/2015 02/25/2018 Lower urinary tract infectious disease 11/26/2014 02/25/2018 Overview (07/27/2015): ICD-10 update of inactive term Urinary frequency 11/23/2014 02/25/2018 Urgency of urination 11/23/2014 018 Nausea 11/23/2014 02/25/2018 Dermatitis 09/14/2014 02/25/2018 Closed fracture of fibula 07/21/2009 Injury, other and unspecifie d, other specified sites, including multiple 07/21/200905/2017 Routine child health exam 10/16/2001 documented as of this encounter (statuses as of 06/20/2024) Immunizations Name Administration Dates Next Due DTaP Dipth/Tet/Acell Pertussis (Infanrix), Peds 11/18/1998,01/26/1995,02/06/1994,1993,1993 HIB PRP-T, 4 Dose, PF, IM (H iberix, ActHib) 12/01/1994,02/06/1994,1993,1993 HPV Vaccine, 4-Valent 09/25/2013,02/05/2013,11/2012 Hepatitis B, 0-19 yrs 02/06/1994,1993,04/1993 IPV - Polio Virus Vaccine (Inact) 1998,12/01/1994,1993,1993 MMR - Measles/Mumps/Rubella Vaccine 11/18/1998,0 12/01/1994 Seasonal Influenza Virus Vac cine, Unspecified Formulation 03/11/2019 TDAP (age 10 and older)(Boostrix) 12/02/2012 Varicella Vaccine (Chicken Pox) 04/20/1995 documented as of this encounter Social History Tobacco Use Types Packs/Day Years Used Date Smoking Tobacco: Never Smokeless Tobacco: Never Alcohol Use Standard Drinks/Week Comments Not Currently 0 (1 standard drink = 0.6 oz pur e alcohol) Rarely PHQ-2 Answer Date Recorded PHQ Adult Total Score 0 08/13/2020 Hunger Vital Sign Answer Date Recorded Within the past 12 months, y ou worried that your food would run out before you got the money to buy more. Never true 04/01/19 21 Within the past 12 months, t he food you bought just didn't last and you didn't have money to get more. Never true 04/01/2020 Comments No Sex and Gender Information Value Date Recorded Sex Assigned at Not on file Legal Sex Female 6:05 AM EST Gender Identity Not on file Sexual Orientation Straight 10/01/2018 3: 23 PM EDT documented as of this encounter Miscellaneous Notes * Telephone Encounter - Russel Zamorano CRNP - 06/20/2024 9:44 AM EDT Yes, Vitamin D was also low but everything else looked okay. I would recommend starting over the counter vitamin D supplement 1000 units daily. Usually repeat labs in 2 months, but can discuss this at our follow up visit. * Telephone Encounter - Katheryn Kaplan LPN - 06/20/2024 9:37 AM EDT Patient is aware and verbalizes understanding, will comply and report to the ER for infusion. She wanted to know about the rest of her labs, looked normal except for her low Vitamin D at 13. Please advise.. Pharmacy selected. * Telephone Encounter - Janette Salamanca OSA - 06/20/2024 9:35 AM EDT Reason for patient's call: return call, test results Caller was transferred to [facility] at the nurse line. * Telephone Encounter - Russel Zamorano CRNP - 06/20/2024 9:31 AM EDT Attempted to call patient. Left message. Iron deficiency anemia but given hgb is 5.5 I would recommend she go to the ER for transfusion. Placed urgent heme/onc referral as well as will likely need Iron transfusion as well. * Telephone Encounter - Rohith Amezcua MD - 06/20/2024 7:07 AM EDT Call received overnight for critical value. Hgb 5.5. Indices strongly indicate severe iron deficiency anemia (w/ hx of same - last hgb in chart 10.3 in 2022). Unless actively bleeding no indication for hospitalization/PRBC transfusion. Needs IV iron. documented in this encounter Plan of Treatment Upcoming Encounters Date Type Department Care Team (Late st Contact Info) Description 07/22/2024 3:20 PM EDT Office Visit Family Medicine [address] [place] [phone] Russel Zamorano [address] [place] [address] Scheduled Referrals Name Type Priority Associated Diagnoses Orde r Schedule HEMATOLOGY/ONCOLOGY REFERRAL OP Referral Within 3 days (urgent) Iron deficiency anemia, unspecified iron deficiency anemia type Ordered: 06/20/2024 Health Maintenance Due Date Last Done Comments HIV Screening 2008 Hepatitis C Screening 07/25/2011 Pap Smear 2014 Depression Screening 08/13/2021 08/13/2020 DTap/Tdap Vaccines (7 - Td or Tdap) 12/02/2022 12/02/2012, 11/18/1998, 01/26/1995, Additional history exists Cervical Cancer Screening 07/25/2023 HPV/Co-Test 07/25/2023 COVID-19 Vaccine ( season) 2023 Influenza Vaccine (FLU shot) (#1) 2023 03/11/2019 Hepatitis B Vaccine Completed 02/06/1994, 1993, 1993 HPV (Gardasil) Vaccine Completed 4, 02/05/2013, 12/02/2012 MENINGOCOCCAL (MENACTRA/MENVEO) Aged Out No longer eligible based on patient's age to complete this topic Meningitis B Vaccine (Bexsero/Trumemba) Aged Out No longer eligible based on patient's age to complete this topic Pneumococcal Vaccine: Pediatrics (0 to 5 Years) and At-Risk Patients (6 to 18 Years and 19+ Years) Aged Out No longer eligib le based on patient's age to complete this topic documented as of this encounter Medical Devices Not on filedocumented as of this encounter Visit Diagnoses Diagnosis FRANCISCO JAVIER (generalized anxiety disorder)- Primary Generalized anxiety disorder Screening for cardiovascular condition Screening for other and unspecified cardiovascular conditions History of Ana María-en-Y gastric bypass Bariatric surgery status Moderate episode of recurrent major depressive disorder (HCC) PMDD (premenstrual dysphoric disorder) Premenstrual tension syndromes Iron deficiency anemia, unspecified iron deficiency anemia type- Primary documented in this encounter Advance Directives * Full Code (Latest Code Status on File) Date Activated Date Inactivated Comments 09/22/2015 8:20 AM 09/27/2015 1:32 PM This order re flects the patients wishes and were consensually agreed upon. * Full Code Date Activated Date Inactivated Comments 07/21/2009 10:23 PM 07/23/2009 5:45 PM This order reflects the patients wishes and were consensually agreed upon. Question Answer Comments Discussion of Advance Directives occurred with: Patient
--- OUTSIDE RECORDS SUMMARY | 2024-06-21 00:39 | External Medical Summary | Summary of Care ---
Author Name Unknown Organization [facility] Address [address] [place] [address] Phone [phone] Care Team Providers Care Mosaic Layer Name Role Phone Unavailable Primary Care Provider Unavailabl e Reason for Referral * Evaluate & Treat - Unlimited Visits (Within 3 days (urgent)) - Authorized Specialty Diagnoses / Procedures Referred By Contbernice t Referred To Contact Hematology/Oncology / Hematology Oncology Diagnoses Iron deficiency anemia, unspecified iron deficiency anemia type Russel Zamorano CRNP [address] [place], [place] [address] [address] Phone: tel: fax: Referral ID Status Reason Start Date Expiration Date Visits Requested Visits Authorized [id number] Authorized Specialty Services Required 06/20/[phone] [...] Contact Info) Description 06/20/2024 Telephone Family Practice [facility] [address] [place] [address] Rohith Amezcua MD [address] [place] [address] Test [...] if needed - agreeable to behavioral health casey saw operator to discuss other resources Orders: CBC WITH [...] call, test results Caller was transferred to [facility] at the nurse line. * Telephone Encounter [...] 3:20 PM EDT Office Visit Family Medicine [address] [place] [phone] Russel Zamorano [address] [place] [address] Scheduled Referrals Name Type Priority Associated Diagnoses [...]
--- OUTSIDE RECORDS SUMMARY | 2024-06-21 00:39 | External Medical Summary | Summary of Care ---
Author Name Unknown Organization [facility] Address [address] [place] [address] Phone [phone] Care Team Providers Care Pc Tech Name Role Phone Unavailable Primary Care Provider Unavailabl e Reason for Referral * Evaluate & Treat - Unlimited Visits (Within 3 days (urgent)) - Authorized Specialty Diagnoses / Procedures Referred By Contbernice t Referred To Contact Hematology/Oncology / Hematology Oncology Diagnoses Iron deficiency anemia, unspecified iron deficiency anemia type Russel Zamorano CRNP [address] [place], [place] [address] [address] Phone: tel: fax: Referral ID Status Reason Start Date Expiration Date Visits Requested Visits Authorized [id number] Authorized Specialty Services Required 06/20/[phone] [...] Contact Info) Description 06/20/2024 Telephone Family Practice [facility] [address] [place] [address] Rohith Amezcua MD [address] [place] [...] if needed - agreeable to behavioral health case making machine operator to discuss other resources Orders: CBC [...] call, test results Caller was transferred to [facility] at the nurse line. * Telephone Encounter [...] 3:20 PM EDT Office Visit Family Medicine [address] [place] [phone] Russel Zamorano [address] [place] [address] Scheduled Referrals Name Type Priority Associated Diagnoses [...]
--- OUTSIDE RECORDS SUMMARY | 2024-06-21 00:39 | External Medical Summary | Summary of Care ---
Author Name Unknown Organization [facility] Address [address] [place] [address] Phone [phone] Care Team Providers Care Industrial Analyst Name Role Phone Unavailable Primary Care Provider Unavailabl e Reason for Referral * Evaluate & Treat - Unlimited Visits (Within 3 days (urgent)) - Authorized Specialty Diagnoses / Procedures Referred By Contbernice t Referred To Contact Hematology/Oncology / Hematology Oncology Diagnoses Iron deficiency anemia, unspecified iron deficiency anemia type Russel Zamorano CRNP [address] [place], [place] [address] [address] Phone: tel: fax: Referral ID Status Reason Start Date Expiration Date Visits Requested Visits Authorized [id number] Authorized Specialty Services Required 06/20/[phone] [...] Contact Info) Description 06/20/2024 Telephone Family Practice [facility] [address] [place] [address] Rohith Amezcua MD [address] [place] [...] if needed - agreeable to behavioral health foster care case manager to discuss other resources Orders: [...] call, test results Caller was transferred to [facility] at the nurse line. * Telephone Encounter [...] 3:20 PM EDT Office Visit Family Medicine [address] [place] [phone] Russel Zamorano [address] [place] [address] Scheduled Referrals Name Type Priority Associated Diagnoses [...]
--- OUTSIDE RECORDS SUMMARY | 2024-06-21 00:40 | External Medical Summary ---
Author Name Unknown Address Unknown Organization [id number]:[facility] - [address] [facility] [address] Laboratory Report Ordering Provider Test Date Status JOSHUA WASHINGTON 06/19/2024 15:51:12 Final Observation Date Value Abnormality Reference (Units ) Status BUN 06/19/2024 15:51:12 10 6-20 (mg/dL) Final Creatinine 06/19/2024 15:51:12 0.6 0.5-1.0 (mg/dL) Final Glomerular filtration rate/1.73 sq M.predicted [Volume Rate/Area] in Serum, Plasma or Blood by Creatinine-based formula (CKD-EPI) 06/19/2024 15:51:12 >90 >=60 (mL/min) Final eGFR is calculated based on the CKD-EPI 2020 equation. Sodium 06/19/2024 15:51:12 139 135-146 (m mol/L) Final Potassium 06/19/2024 15:51:12 3.7 3.5-5.1 (m mol/L) Final Cl 06/19/2024 15:51:12 105 98-107 (mm ol/L) Final CO2 06/19/2024 15:51:12 23 22-32 (mmo l/L) Final Anion gap 06/19/2024 15:51:12 11 7-15 (mmol /L) Final Glucose 06/19/2024 15:51:12 91 70-120 (mg /dL) Final Albumin 06/19/2024 15:51:12 4.4 3.8-5.0 (g /dL) Final AST (Aspartate aminotransferase) 06/19/2024 15:51:12 17 10-35 (U/L) Final Alk Phos 06/19/2024 15:51:12 64 35-130 (U/ L) Final Bilirubin, Total 06/19/2024 15:51:12 0.4 <=1 .2 (mg/dL) Final Calcium 06/19/2024 15:51:12 9.0 8.4-10.2 ( mg/dL) Final Protein 06/19/2024 15:51:12 7.1 6.0-8.3 (g /dL) Final ALT (Alanine aminotransferase) 06/19/2024 15:51:12 14 10-35 (U/L) Final Performing Location [facility]ORY [facility] [place] - [address] [facility] [address]
--- OUTSIDE RECORDS SUMMARY | 2024-06-21 00:40 | External Medical Summary | Summary of Care ---
Author Name Unknown Organization [facility] Address [address] [place] [address] Phone [phone] Care Team Providers Care Senior Administrative Associate Name Role Phone Unavailable Primary Care Provider Unavailabl e Encounter Details Date Type Department Care Team (Late st Contact Info) Description 04/15/2024 Population Health External Data Unspecified Department Allergies No known active allergiesdocumented as of this encounter (statuses as of 04/15/2024) Medications Albuterol Sulfate HFA 108 (90 Base) MCG/ACT Inhalation Aerosol Solution TAKE 2 PUFFS BY MOUTH EVERY 4 HOURS NEEDED FOR WHEEZE 18 g 1 03/30/2021 Active Sertraline HCl 100 MG Oral Tablet (Zoloft)Indicat ions:FRANCISCO JAVIER (generalized anxiety disorder),Mild depression Take by mouth 1.5 Tablets in the morning. 45 Tablet 5 05/12/2021 Active documented as of this encounter (statuses as of 04/15/2024) Active Problems Problem Noted Date Diagnosed Date Postoperative intestinal malabsorption 2 History of Ana María-en-Y gastric bypass 12/22/2020 Morbid obesity due to excess calories 04/01/2020 FRANCISCO JAVIER (generalized anxiety disorder) 04/01/2020 BMI 45.0-49.9, adult 08/28/2018 History of herpes genitalis 11/23/2014 Respiratory abnormality 09/14/2014 Overview (05/04/2020): In cold or heat sometimes, ? Asthma. Very rare ATTN DEFIC NONHYPERACT documented as of this encounter (statuses as of 04/15/2024) Resolved Problems Problem Noted Date Diagnosed Date Resolved Date Depression 04/01/2020 04/01/2020 Prediabetes 08/28/2018 06/03/2020 Body [...] as of this encounter (statuses as of 04/15/2024) Immunizations Name Administration Dates Next Due HPV Vaccine, 4-Valent 09/25/2013,02/05/2013,11/2012 Seasonal Influenza Virus Vac cine, Unspecified Formulation 03/11/2019 TDAP (age 10 and older)(Boostrix) 12/02/2012 documented as of this encounter Social History [...] PM EDT documented as of this encounter Plan of Treatment Health Maintenance Due Date Last Done Comments [...] 02/06/1994, 1993, 1993 HPV (Gardasil) Vaccine Completed , 02/05/2013, 12/02/2012 MENINGOCOCCAL (MENACTRA/MENVEO) Aged Out No longer eligible based on patient's age to complete this topic Pneumococcal Vaccine: Pediatrics (0 to 5 Years) and At-Risk Patients (6 to 18 Years and 19+ Years) Aged Out No longer eligib le based on patient's age to complete this topic documented as of this encounter Medical Devices Not on filedocumented as of this encounter Advance Directives * Full Code [...]
--- OUTSIDE RECORDS SUMMARY | 2024-06-21 00:40 | External Medical Summary ---
Author Name Unknown Address Unknown Organization [id number]:[facility] - [address] [facility] [address] Laboratory Report Ordering Provider Test Date Status JOSHUA WASHINGTON 06/19/2024 15:51:12 Final Observation Date Value Abnormality Reference (Units ) Status SYNC LEUKOCYTES IN BLOOD BY AUTOMATED COUNT 06/19/2024 15:51:12 7.19 4.00-10.80 (K/uL) Final Segs 06/19/2024 15:51:12 58.5 40.0-75.0 (%) Final Lymphs % 06/19/2024 15:51:12 29.1 18.0-42.0 (%) Final Monos 06/19/2024 15:51:12 6.0 1.0-11.0 (%) Final Eosinophils 06/19/2024 15:51:12 4.3 0.0-6.0 (%) Final Basos 06/19/2024 15:51:12 1.7 0.0-2.0 (%) Final Immature Granulocyte, Percent 06/19/2024 15:51:12 0.4 0.0-2.0 (%) Final Absolute Segs 06/19/2024 15:51:12 4.21 1.80-7.70 (K/uL) Final Lymphs, absolute 06/19/2024 15:51:12 2.09 1.00-4.80 (K/ul) Final Monos, Abs 06/19/2024 15:51:12 0.43 0.00-1.10 (K/uL) Final Eos, Abs 06/19/2024 15:51:12 0.31 0.00-0.70 (K/uL) Final Basos, Abs 06/19/2024 15:51:12 0.12 0.00-0.20 (K/uL) Final Immature Granulocytes, Number 06/19/2024 15:51:12 0.03 0.00-0.20 (K/uL) Final Performing Location [facility]ORY [facility] - [address] [facility] [address]
--- OUTSIDE RECORDS SUMMARY | 2024-06-21 00:40 | External Medical Summary ---
Author Name Unknown Address Unknown Organization [id number]:[facility] [place] [address] [facility] [address] Laboratory Report Ordering Provider Test Date Status JOSHUA WASHINGTON 06/19/2024 15:51:12 Final Observation Date Value Abnormality Reference (Units ) Status WBC, Total 06/19/2024 15:51:12 7.19 4.00-10.80 (K/uL) Final RBC 06/19/2024 15:51:12 3.22 3.85-5.15 (M/uL) Final Hemoglobin 06/19/2024 15:51:12 5.5 Below lower panic limits 12.0-15.3 (g/dL) Final Anemia reflex testing trigge rs on a HGB < 12.0 for Females and HGB < 13.0 for Males in accordance with the WHO Anemia Guidelines
Anemia reflex testing triggers on a HGB < 12.0 for Females and HGB < 13.0 for Males in accordance with the WHO Anemia Guidelines HCT 06/19/2024 15:51:12 22.2 Below low normal 36. 0-45.2 (%) Final MCV 06/19/2024 15:51:12 68.9 81.5-97.5 (fL) Final MCH 06/19/2024 15:51:12 17.1 27.0-34.0 (pg) Final MCHC 06/19/2024 15:51:12 24.8 32.0-36.0 (g/dL) Final RDW 06/19/2024 15:51:12 21.5 11.5-15.5 (%) Final Platelets 06/19/2024 15:51:12 398 140-400 (K /uL) Final MPV 06/19/2024 15:51:12 10.9 6.6-11.1 ( fL) Final Nucleated erythrocytes/100 leukocytes [Ratio] in Blood by Automated count 06/19/2024 15:51:12 0 <=0 (/100 WBCs) Final Performing Location LABORATORY [place] [address] [facility] [address]
--- OUTSIDE RECORDS SUMMARY | 2024-06-21 00:40 | External Medical Summary ---
Author Name Unknown Address Unknown Organization [id number]:[facility] - [address] [place] [address] Laboratory Report Ordering Provider Test Date Status JOSHUA WASHINGTON 06/19/2024 15:51:12 Final Observation Date Value Abnormality Reference (Units ) Status Ferritin 06/19/2024 15:51:12 2 Below low normal 13- 150 (ng/mL) Final Performing Location [facility] - [address] [place] [address]
--- OUTSIDE RECORDS SUMMARY | 2024-06-21 00:40 | External Medical Summary ---
Author Name Unknown Address Unknown Organization [id number]:[facility] [place] [address] [place] [address] Laboratory Report Ordering Provider Test Date Status JOSHUA WASHINGTON 06/19/2024 15:51:12 Final Observation Date Value Abnormality Reference (Units ) Status Vitamin B12 06/19/2024 15:51:12 [phone] (pg/mL) Final Performing Location LAB[facility]ATORY [facility] - [address] [place] [address]
--- OUTSIDE RECORDS SUMMARY | 2024-06-21 00:40 | External Medical Summary | Summary of Care ---
Author Name Unknown Organization [facility] Address [address] [place] [address] Phone [phone] Care Team Providers Care Mechanical Engineering Specialist Name Role Phone Unavailable Primary Care Provider Unavailabl e Reason for Visit * Reason Onset Date Comments Referral 06/20/2024 Epic 178 Encounter Details Date Type Department Care Team ([facility] st Contact Info) Description 06/20/2024 Telephone BEHAVIORAL HEALTH ALLOCATIONS CLERK [address] [place] [address] Ameena Robison, BA [address] [place] [address] Referral (Epic 178) Allergies No known active allergiesdocumented as of [...] needed - agreeable to behavioral health case operator to discuss other resources Orders: CBC [...] 06/20/2024) Immunizations Name Administration Dates Next Due HPV [...] encounter Miscellaneous Notes * Telephone Encounter - Ameena Robison BA - 06/20/2024 8:39 AM EDT Reason for referral: Anxiety, depression, PMDD, mood swings, wants to stop taking meds because she feels they do not help, does not want to get off the couch, no SI but thinks about drug use-will notact on it, feels angry Outcome: Contacted [phone], declined services at this time, did take the warm line number [phone] and our call back number [phone]. Said it is too hard to make appointments. documented in this encounter Plan of Treatment Upcoming Encounters Date Type Department Care Team (Late st Contact Info) Description 07/22/2024 3:20 PM EDT Office Visit Family Medicine [address] [place] [phone] Russel Zamorano [address] [place] [phone] Health Maintenance Due Date Last Done Comments [...] HPV (Gardasil) Vaccine Completed , 02/05/2013, 12/02/2012 Lipid Panel Completed 06/19/2024 MENINGOCOCCAL (MENACTRA/MENVEO) Aged Out No longer eligible [...]
--- OUTSIDE RECORDS SUMMARY | 2024-06-21 00:40 | External Medical Summary ---
Author Name Unknown Address Unknown Organization [id number]:[place] [place] [address] [facility] [address] Laboratory Report Ordering Provider Test Date Status JOSHUA WASHINGTON 06/19/2024 15:51:12 Final Observation Date Value Abnormality Reference (Units ) Status TSH 06/19/2024 15:51:12 1.53 0.27-4.20 (uIU/mL) Final Performing Location LABORATORY C - [address] [facility] [address]
--- OUTSIDE RECORDS SUMMARY | 2024-06-21 00:40 | External Medical Summary | Summary of Care ---
Author Name Unknown Organization [facility] Address [address] [place] [address] Phone [phone] Care Team Providers Care Neurological Surgeon Name Role Phone Unavailable Primary Care Provider Unavailabl e Reason for Referral * Social Care (Within 10 days (routine)) - Authorized Specialty Diagnoses / Procedures Referred By Kojo xiong Referred To Contact Lpn Rn Diagnoses FRANCISCO JAVIER (generalized anxiety disorder) Moderate episode of recurrent major depressive disorder (HCC) PMDD (premenstrual dysphoric disorder) Russel Zamorano CRNP [address] [place] [address] [place] [address] Phone: tel: fax: Referral ID Status Reason Start Date Expiration Date Visits Requested Visits Authorized [id number] Authorized Specialty Services Required 06/19/2024 999 999 Question Answer Role Behavioral Health Lpn RnStructural 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 [facility] Comments Is patient being transitioned from [facility] to Complex Case Management? No Reason for Visit * Reason Comments NEW PATIENT Acute Encounter Details Date Type Department Care Team (Latest Contact Info) Description 06/19/2024 3:20 PM EDT Office Visit Family Medicine [address] [place] [phone] Russel Zamorano CRNP [address] [place] [address] [place] [phone] FRANCISCO JAVIER (generalized anxiety disorder)*; Screening for cardiovascular condition; History of Ana María-en-Y gastric bypass; Moderate episode of recurrent major depressive disorder (HCC); PMDD (premenstrual dysphoric disorder) Allergies No known active allergiesdocumented as of this encounter (statuses as of 06/19/2024) Medications Venlafaxine HCl ER 37.5 MG Oral Capsule Extended Release 24 Hour (Effexor XR)Indications: FRANCISCO JAVIER (generalized anxiety disorder),Moder ate episode of recurrent major depressive disorder (HCC),PMDD (premenstrual dysphoric disorder) Take 1 Capsule by mouth in the morning. Do not cut, crush or chew. 30 Capsule 5 5 Active Albuterol Sulfate HFA 108 (90 Base) MCG/ACT Inhalation Aerosol Solution TAKE 2 PUFFS BY MOUTH EVERY 4 HOURS NEEDED FOR WHEEZE 18 g 1 2 06/20/19 25 Discontinu ed(Medicat ion List Clean Up) Sertraline HCl 100 MG Oral Tablet (Zoloft)Indicat ions:FRANCISCO JAVIER (generalized anxiety disorder),Mild depression Take by mouth 1.5 Tablets in the morning. 45 Tablet 5 2 06/20/19 25 Discontinu ed(Medicat ion List Clean Up) documented as of this encounter (statuses as of 06/19/2024) Active Problems Problem Noted Date Diagnosed Date [...] needed - agreeable to behavioral health case assembler to discuss other resources Orders: CBC WITH [...] as of this encounter (statuses as of 06/19/2024) Resolved Problems Problem Noted Date Diagnosed Date [...] as of this encounter (statuses as of 06/19/2024) Immunizations Name Administration Dates Next Due HPV [...] PM EDT documented as of this encounter Last Filed Vital Signs Vital Sign Reading Time Taken Comments Blood Pressure 112/66 06/19/2024 3:17 PM EDT Pulse - - Temperature 36.8 C (98.2 F) 06/19/2024 3:17 PM ED T Respiratory Rate 16 06/19/2024 3:17 PM EDT Oxygen Saturation - - Inhaled Oxygen Concentration - - Weight - - Height - - Body Mass Index - - documented in this encounter Nursing Notes * Sun Blackwood LPN - 06/19/2024 3:14 PM EDT Declined weight today Depressed. Was seeing someone but missed apps and can't get back in for moody. Out of meds. Having symptoms of low iron. Wants labs done. documented in this encounter Miscellaneous Notes * Assessment & Plan Note - Russel Zamorano CRNP - 06/19/2024 4:02 PM EDT Associated Problem(s): FRANCISCO JAVIER (generalized anxiety disorder) - will update some labs - start Effexor - discussed if wishing to pursue a mood stabilizer I would defer that to psychiatry / recommend re-establishing with [facility] and can always place a new referral if needed - agreeable to behavioral health case assembler to discuss other resources Orders: CBC WITH [...] crush or chew. POPULATION HEALTH REFERRAL OP * Assessment & Plan Note - Russel Zamorano CRNP - 06/19/2024 4:02 PM EDT Associated Problem(s): History of Ana María-en-Y gastric bypass Orders: COMPREHENSIVE METABOLIC PANEL; Future VITAMIN B12; Future documented in this encounter Plan of Treatment Upcoming Encounters Date Type Department Care Team (Late st Contact Info) Description 07/22/2024 3:20 PM EDT Office Visit Family [address] [phone] Russel Zamorano CRNP [address] [place] [address] [place] [phone] Pending Results Name Type Priority Associated Diagnoses Date /Time LIPID PANEL WITH DIRECT LDL IF TG IS HIGH Lab Routine Screening for cardiovascular condition 06/19/2024 3:51 PM EDT CBC WITH WBC DIFFERENTIAL AND ANEMIA REFLEX WORKUP Lab Routine FRANCISCO JAVIER (generalized anxiety disorder) 06/19/2024 3:51 PM EDT COMPREHENSIVE METABOLIC PANEL Lab Routine FRANCISCO JAVIER (generalized anxiety disorder) 06/19/2024 3:51 PM EDT IRON SCREEN, INCLUDING TIBC Lab Routine FRANCISCO JAVIER (generalized anxiety disorder) 06/19/2024 3:51 PM EDT TSH WITH FREE T4 IF INDICATED Lab Routine FRANCISCO JAVIER (generalized anxiety disorder) 06/19/2024 3:51 PM EDT 25-HYDROXY VITAMIN D Lab Routine FRANCISCO JAVIER (generalized anxiety disorder) 06/19/2024 3:51 PM EDT VITAMIN B12 Lab Routine History of Ana María-en-Y gastric bypass 06/19/2024 3:51 PM EDT Scheduled Orders Name Type Priority Associated Diagnoses Orde r Schedule LIPID PANEL WITH DIRECT LDL IF TG IS HIGH Lab Routine Screening for cardiovascular condition Expected: 06/19/2024 (Approximate), Expires: 06/19/2025 CBC WITH WBC DIFFERENTIAL AND ANEMIA REFLEX WORKUP Lab Routine FRANCISCO JAVIER (generalized anxiety disorder) Moderate episode of recurrent major depressive disorder (HCC) Expected: 06/19/2024 (Approximate), Expires: 06/19/2025 COMPREHENSIVE METABOLIC PANEL Lab Routine FRANCISCO JAVIER (generalized anxiety disorder) History of Ana María-en-Y gastric bypass Moderate episode of recurrent major depressive disorder (HCC) Expected: 06/19/2024 (Approximate), Expires: 06/19/2025 IRON SCREEN, INCLUDING TIBC Lab Routine FRANCISCO JAVIER (generalized anxiety disorder) Moderate episode of recurrent major depressive disorder (HCC) Expected: 06/19/2024 (Approximate), Expires: 06/19/2025 TSH WITH FREE T4 IF INDICATED Lab Routine FRANCISCO JAVIER (generalized anxiety disorder) Moderate episode of recurrent major depressive disorder (HCC) Expected: 06/19/2024 (Approximate), Expires: 06/19/2025 25-HYDROXY VITAMIN D Lab Routine FRANCISCO JAVIER (generalized anxiety disorder) Moderate episode of recurrent major depressive disorder (HCC) Expected: 06/19/2024 (Approximate), Expires: 06/19/2025 VITAMIN B12 Lab Routine FRANCISCO JAVIER (generalized anxiety disorder) History of Ana María-en-Y gastric bypass Moderate episode of recurrent major depressive disorder (HCC) Expected: 06/19/2024 (Approximate), Expires: 06/19/2025 Scheduled Referrals Name Type Priority Associated Diagnoses Orde r Schedule POPULATION HEALTH REFERRAL OP Referral Within 10 days (routine) FRANCISCO JAVIER (generalized anxiety disorder) Moderate episode of recurrent major depressive disorder (HCC) PMDD (premenstrual dysphoric disorder) Ordered: 06/19/2024 Health Maintenance Due Date Last Done Comments HIV Screening 2008 Hepatitis C Screening 07/25/2011 Lipid Panel 2013 Pap Smear 2014 Depression Screening 08/13/2021 08/13/2020 [...] PMDD (premenstrual dysphoric disorder) Premenstrual tension syndromes documented in this encounter Advance Directives * [...]
--- OUTSIDE RECORDS SUMMARY | 2024-06-21 00:40 | External Medical Summary ---
Author Name Unknown Address Unknown Organization [id number]:LABORATORY [facility] - [address] [facility] [address] Laboratory Report Ordering Provider Test Date Status ARLEEN WASHINGTONT 06/19/2024 15:51:12 Final Observation Date Value Abnormality Reference (Units ) Status Triglyceride 06/19/2024 15:51:12 53 <=174 ( mg/dL) Final Triglyceride Reference Range s (mg/dL):
<150 Acceptable
150-174 Borderline high
175-499 High
>=500 Very high Cholesterol 06/19/2024 15:51:12 153 <200 (mg /dL) Final Total Cholesterol Reference Ranges (mg/dL):
<200 Desirable
200-239 Borderline high
>=240 High HDL 06/19/2024 15:51:12 60 >49 (mg/dL ) Final HDL Cholesterol Reference Ra nges (mg/dL):
>=60 High (Desirable)
<50 Low (Undesirable) For Females
<40 Low (Undesirable) For Males NON-HDL CHOLESTEROL 06/19/2024 15:51:12 93 <=159 (mg/dL) Final Non-HDL Cholesterol Referenc e Range (mg/dL):
<100 Target level for high risk ASCVD patient
<130 Optimal for general population
130-159 Near optimal for general population
160-189 Borderline High
190-219 High
>=220 Very High LDL, (calculated) 06/19/2024 15:51:12 82 <= 129 (mg/dL) Final LDL Cholesterol Reference Ra nges (mg/dL):
<70 Target level for high risk ASCVD patient
<100 Optimal for general population
100-129 Near optimal for general population
130-159 Borderline high
160-189 High
>=190 Very high
Patient has high LDL cholesterol. Consider screening for Familial Hypercholesterolemia. Performing Location LABORATORY [facility] [place] - [address] [facility] [place], [place] [address]
--- OUTSIDE RECORDS SUMMARY | 2024-06-21 00:40 | External Medical Summary | Summary of Care ---
Author Name Unknown Organization [facility] Address [address] [place] [address] Phone [phone] Care Team Providers Care Soldering Inspector Name Role Phone Unavailable Primary Care Provider Unavailabl e Reason for Visit * Reason Comments Outpatient Testing Encounter Details Date Type Department Care Team (Late st Contact Info) Description 06/19/2024 3:50 PM EDT Laboratory Laboratory [address] [place] [phone] [place] [address] Screening for cardiovascular condition; FRANCISCO JAVIER (generalized anxiety disorder); History of Ana María-en-Y gastric bypass Allergies No known active allergiesdocumented as of [...] if needed - agreeable to behavioral health mental health case manager to discuss other resources Orders: [...] 06/19/2024 06/19/2024 Vaginal bleeding during , antepartum 06/20/19 25 06/19/2024 Subchorionic hematoma 06/19/20242024 06/19/2024 06/19/2024 Pneumoperitoneum 06/19/2024 [...] as of this encounter Plan of Treatment Upcoming Encounters Date Type Department Care Team (Late st Contact Info) Description 07/22/2024 3:20 PM EDT Office Visit Family Medicine [address] [place] [phone] Russel Zamorano [address] [place] [phone] Pending Results Name Type Priority Associated Diagnoses [...] María-en-Y gastric bypass 06/19/2024 3:51 PM EDT ANEMIA CBC Lab Routine FRANCISCO JAVIER (generalized anxiety disorder) 06/19/2024 3:51 PM EDT DIFFERENTIAL, AUTOMATED Lab Routine FRANCISCO JAVIER (generalized anxiety disorder) 06/19/2024 3:51 PM EDT ANEMIA REFLEX CHEMISTRY HOLD Lab Routine FRANCISCO JAVIER (generalized anxiety disorder) 06/19/2024 3:51 PM EDT Health Maintenance Due Date Last Done Comments [...] PMDD (premenstrual dysphoric disorder) Premenstrual tension syndromes Screening for cardiovascular condition Screening for other and unspecified cardiovascular conditions FRANCISCO JAVIER (generalized anxiety disorder) Generalized anxiety disorder History of Ana María-en-Y gastric bypass Bariatric surgery status documented in this encounter Advance Directives * [...]
--- OUTSIDE RECORDS SUMMARY | 2024-06-21 00:40 | External Medical Summary ---
Author Name Unknown Address Unknown Organization [id number]:LABORATORY [facility] [place] - [address] [place] [address] Laboratory Report Ordering Provider Test Date Status JOSHUA WASHINGTON 06/19/2024 15:51:12 Final Deficient: <20 ng/mL
Ins ufficient: 20-29 ng/mL
Recommended/Optimum:30-50 ng/mL

Vitamin D intoxication is rare. If suspicious of Vitamin D toxicity, evaluation of serum Calcium and PTH is recommended. Observation Date Value Abnormality Reference (Units ) Status 25-OH Vitamin D total 06/19/2024 15:51:12 13 Below low normal >19 (ng/mL) Final Performing Location LABORATORY [facility] [place] - [address] [place] [address]
--- OUTSIDE RECORDS SUMMARY | 2024-06-21 00:40 | External Medical Summary ---
Author Name Unknown Address Unknown Organization [id number]:[facility]ORY [facility] [place] [facility] [place] [address] Laboratory Report Ordering Provider Test Date Status JOSHUA WASHINGTON 06/19/2024 15:51:12 Final Observation Date Value Abnormality Reference (Units ) Status Retic, % (auto) 06/19/2024 15:51:12 2.28 Above high normal 0.80-1.90 (%) Final Reticulocytes, Absolute 06/19/2024 15:51:12 72.7 31.3-100.1 (K/uL) Final Reticulocyte fraction, immature 06/19/2024 15:51:12 15.1 2.5-20.6 (%) Final Reticulocyte HGB 06/19/2024 15:51:12 14.9 Below low normal 29.7-37.4 (pg) Final Performing Location LABORATORY [facility] [place] [facility] [place] [address]
--- OUTSIDE RECORDS SUMMARY | 2024-06-21 00:40 | External Medical Summary | Summary of Care ---
Author Name Unknown Organization [facility] Address [address] [place] [address] Phone [phone] Care Team Providers Care Melter Helper Name Role Phone Unavailable Primary Care Provider Unavailabl e Reason for Visit * Reason Onset Date Comments No Show 01/31/2024 [facility] No Show Auto mation Encounter Details Date Type Department Care Team (Late st Contact Info) Description 01/31/2024 Telephone Family Medicine [address] [phone] Russel [address] [place] [address] No Show ([place] No Show Automation) Allergies No known active allergiesdocumented as of this encounter (statuses as of 01/31/2024) Medications Medication Sig Dispensed Refills Start Date End Date Status Albuterol Sulfate HFA 108 (90 Base) MCG/ACT Inhalation Aerosol Solution TAKE 2 PUFFS BY MOUTH EVERY 4 HOURS NEEDED FOR WHEEZE 18 g 1 03/30/2021 Active Sertraline HCl 100 MG Oral Tablet (Zoloft)Indications:G AD (generalized anxiety disorder),Mild depression Take by mouth 1.5 Tablets in the morning. 45 Tablet 5 05/12/2021 Active documented as of this encounter (statuses as of 01/31/2024) Active Problems Problem Noted Date Diagnosed Date Postoperative intestinal malabsorption 2 History of Ana María-en-Y gastric bypass 12/22/2020 Morbid obesity due to excess calories 04/01/2020 FRANCISCO JAVIER (generalized anxiety disorder) 04/01/2020 BMI 45.0-49.9, adult 08/28/2018 History of herpes genitalis 11/23/2014 Respiratory abnormality 09/14/2014 Overview: In cold or heat sometimes, ? Asthma. Very rare ATTN DEFIC NONHYPERACT documented as of this encounter (statuses as of 01/31/2024) Resolved Problems Problem Noted Date Diagnosed Date Resolved Date Depression 04/01/2020 04/01/2020 Prediabetes 08/28/2018 06/03/2020 Body mass index (BMI) of 45. 0 to 49.9 in adult 03/04/2018 08/28/2018 Overview: Per Obesity protocol #1 - bmi= 40.39 10/25/15 Anxiety 02/28/2016 05/04/2020 Adult BMI 40.0-44.9 kg/sq m 10/25/2015 03/08/2018 Overview: bmi= 40.39 10/25/15 Mild preeclampsia 09/27/2015 02/25/2018 S/P repeat low transverse 09/23/2015 02/25/2018 Lower urinary tract infectious disease 11/26/2014 02/25/2018 Overview: ICD-10 update of inactive term Urinary frequency 11/23/2014 02/25/2018 Urgency of urination 11/23/2014 018 Nausea 11/23/2014 02/25/2018 Dermatitis 09/14/2014 02/25/2018 Closed fracture of fibula 07/21/2009 Injury, other and unspecifie d, other specified sites, including multiple 07/21/200905/2017 Routine child health exam 10/16/2001 documented as of this encounter (statuses as of 01/31/2024) Immunizations Name Administration Dates Next Due HPV [...] money to get more. Never true 04/01/2020 Utilities Answer Date Recorded Do you have trouble paying y our heating, water, or electric bill? (Adult - for ages 18 years and over) Not on file 09/11/2023 Is your family able to pay t he heat, water, or electric bill? (Household - for ages 0-17 years) Not on file 09/11/2023 Does your family have access to good internet? (Household - for ages 0-17 years) Not on file 09/11/2023 Social Connections Answer Date Recorded How often do you feel lonely or isolated from those around you? (Adult - for ages 18 years and over) Not on file 09/11/2023 Sex and Gender Information Value Date Recorded Sex Assigned at Not on file Gender Identity Not on file Sexual Orientation Straight 10/01/2018 3: 23 PM EDT Job Start Date Occupation Industry Not on file Not on file Not on file documented as of this encounter Miscellaneous Notes * Telephone Encounter - [facility], No Show - 01/31/2024 4:48 AM EST Dear Jaqui York, Looks like you missed an appointment with RUSSEL LEWIS on 01/28/2024 at 10:40 AM. If you haven't already rescheduled, you have a couple of options: Reschedule in [email or web address] Call us at [phone] Can't make a future appointment? Cancel and let someone else have your spot! It's easy to do via [employer] or by calling us. Thanks for trusting [facility] with your care. We hope to see you back in our office soon. Sincerely, RUSSEL LEWIS documented in this encounter Plan of Treatment Health Maintenance [...] 5 Years) and At-Risk Patients (6 to 64 Years) Aged Out No longer eligible based on [...]
[2024-06-21 01:05] LABS: Hematocrit (blood only) 27.6 % (37.0-47.0); Hemoglobin 7.6 g/dl (12.0-16.0)
--- NOTE | 2024-06-21 06:58 | Gynecologic Progress Note ---
Date of Service June 21, 2024 Assessment & Plan (1) Menorrhagia with regular cycle: Plan: Bleeding is significantly better today I do not think adding a progesterone taper would be needed or reasonable. I will have our office contact her and I will try to see her when I am in the office next week and discuss a long-term plan this may include a Mirena IUD we may discuss hormonal contraception we may discuss surgical options she is potentially answered did an hysterectomy but would have to have a full discussion of the option of alternatives risks and benefits Please contact gynecology if she has any further heavy bleeding otherwise she is cleared from our point Total time today spent with patient 35 minutes Admission and Anticipated Discharge Date Admission Date: June 20, 2024 Subjective Patient feels much better she was transfused 2 units of blood her hemoglobin is significantly improved her bleeding is almost stopped she says again her menses are extremely heavy but only last for 1 day I suspect that her anemia is multifactorial but the menstruation is contributing to it Physical Exam Constitutional: WD/WN, vitals as above well developed and well nourished Respiratory: normal respiratory effort, lungs clear to auscultation normal respiratory effort Cardiovascular: RRR, no murmur, no edema Gastrointestinal (Abdomen): normal bowel sounds, soft, nontender, no hepatosplenomegaly Results & Data Vital Signs (Past 12 Hours) Vital Signs Temp Pulse Pulse Resp BP BP Pulse Ox 06/20/24 23:50 97.9 F 72 111/70 98 06/20/24 22:45 98.1 F 79 112/73 98 06/20/24 21:55 97.7 F 85 111/75 98 06/20/24 21:25 98.1 F 82 16 109/71 98 06/20/24 21:10 97.7 F 87 108/68 100 06/20/24 20:53 98.2 F 87 14 96/60 L 98 06/20/24 20:12 98.2 F 87 96/60 L 98 06/20/24 19:13 98.1 F 84 16 104/67 97 06/20/24 19:12 98.1 F 84 16 104/67 97 O2 Del Method 06/20/24 23:50 06/20/24 22:45 06/20/24 21:55 06/20/24 21:25 06/20/24 21:10 06/20/24 20:53 06/20/24 20:12 06/20/24 19:13 Room Air 06/20/24 19:12 PG Care Time/CCT Total # of Minutes Spent Total Time Spent with Patient: Total time spent is greater than 50% in coordination of care (as documented) at patient's floor/unit and/or counseling patient: Coding Level of Care Code 95039 SUB INP/OBS CARE 2/35MIN Diagnoses Menorrhagia with regular cycle N92.0
[2024-06-21 07:30] LABS: Hematocrit (blood only) 24.8 % (37.0-47.0); Mean Corpuscular Hemoglobin 20.1 pg (25.0-34.0); Mean Corpuscular Hgb Conc 28.2 g/dL (32.0-36.0); Mean Corpuscular Volume 71.1 fL (80.0-100.0); Mean Platelet Volume 10.6 fL (9.4-12.4); Platelet Count 332 K/uL (130-400); RDW Coefficient of Variation 23.9 % (11.5-14.5); Red Blood Count 3.49 M/uL (4.20-5.40); White Blood Count 7.39 K/ul (4.8-10.8)
[2024-06-21 07:39] LABS: BUN Creatinine Ratio 23.9 (10-20); Calcium 8.4 mg/dl (8.6-10.3); Creatinine Clr Calc Pharmacy 95.8 ml/min; Potassium 3.8 mmol/L (3.5-5.1)
[2024-06-21 07:42] LABS: Estimated Average Glucose 94 mg/dl; Hemoglobin A1C 4.9 % (4.5-5.6)
[2024-06-21] MEDS: IRON SUCROSE 200 MG in SODIUM CHLORIDE 0.9% 100 ML IV SCH (08:12)
--- NOTE | 2024-06-21 09:44 | Discharge Summary ---
Date of Service June 21, 2024 Admission HPI Per Admitting Provider 28 year old female with past medical history of gastric bypass surgery, depression, anxiety, presenting to the emergency room with heavy menstrual bleeding and worsening depression, fatigue and dizziness. Symptoms began over a year ago and have progressively worsened to the point of not being able to adequately care for her children and home. Yesterday, she saw her PCP for an acute visit, mostly for depression, and was prescribed venlafaxine. Lab work drawn, Hgb 5.5 and severe MADY. Currently on menses, day 2 with heavy bleeding with clots. Reports frequency heavy menses lasting 5 days. Lab work in ED revealed: RBC 2.84, Hgb 4.8, Hct 19, MCV 68, MCHC 24.9. Denies weight loss, illnesses, fevers, hematuria, hematochezia, breathing difficulty,shortness of breath, palpitations, chest pain, abdominal pain, N/V, bowel changes, skin changes. History obtained from patient and external chart review. Admission Exam Per Admitting Provider GEN: Pale appearance, well-developed and nourished, NAD. PSYCH: Good Judgment. AOx3. Normal memory, mood, and affect. HEENT -Head: NC/AT; -Eyes: PERRL, EOMI. No discharge or redness; -Ears: External ears are normal. Normal TMs. -Nose: Normal nares. -Mouth and throat: MMM. Normal gums, mucosa, palate,. Good dentition. NECK: Supple, with no masses. CV: S1, S2 without murmur, clicks, extra sounds. Warm extremities, strong pulses throughout LUNGS: Clear and equal bilaterally. Effort unlabored. ABD: Soft, NT/ND, NBS, no masses or organomegaly. : N/A SKIN: Warm, well perfused. No skin rashes or abnormal lesions. MSK: No deformities, moving all extremities without difficulty EXT: No clubbing, cyanosis, or edema. NEURO: Ambulating with no limitations. Normal muscle strength and tone. No focal deficits. Principal Diagnosis Iron deficiency anemia Menorrhagia with regular cycle Vitamin D deficiency H/O gastric bypass Discharge Exam GEN: Pale appearance, well-developed and nourished, young F in NAD. HEENT: NC/AT, PERRL, EOMI, External ears are normal. MMM. NECK: Supple CV: S1, S2 without murmur LUNGS: CTAB ABD: Soft, NT/ND, Normal bowel sounds SKIN: Warm, well perfused. No skin rashes or abnormal lesions. MSK: No deformities, moving all extremities without difficulty NEURO: awake, alert, answers appropriately, speech fluent, moves extremities Discharge Data Allergies Allergy/AdvReac Type Severity Reaction Status Date / Time No Known Allergies Allergy 0 Verified 01/28/21 19:05 Consultations 06/20/24 14:01 ED Decision to Admit Stat 06/20/24 14:51 Consult Gynecology Routine Ordered Studies 06/20/24 16:15 US pelvic complete Stat US transvaginal Stat Findings: Transabdominal and transvaginal pelvic sonography was performed. The endometrial stripe measures 3 mm, within normal limits. No uterine mass lesion is seen. Overall, the uterus measures 10.6 x 4.7 x 4.1 cm in size. There are nabothian cysts, the largest a 1.3 cm septated cyst The left ovary measures 3 x 2.5 x 1.7 cm and appears normal. The right ovary measures 2.7 x 1.9 x 1.8 cm and appears normal also. Vascular flow was detected within both ovaries No free fluid is seen within the pelvis. The urinary bladder appears unremarkable. Impression: 1. Nabothian cysts 2. Otherwise unremarkable pelvic sonogram Hospital Course (1) Iron deficiency anemia: s/p 2 units PRBC on admission s/p IV Iron this AM Per outpt EMR Epic - Iron 14, TIBC 459, Ferritin 2, Tsat 3% Heme/Onc referral has already been initiated by PCP- encouraged patient to follow-up with this appointment following this admission (2) Menorrhagia with regular cycle: Not currently on control but has a history of tubal ligation. 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 Cherry - plan to also follow up as outpt (3) Hypokalemia: Potassium 3.3 on admission, replaced K normal this AM (4) H/O gastric bypass: Current state of anemia may be a combination of chronic blood loss associated with menses and malabsorption of essential nutrients. No further intervention or consults are needed at this time as the patient is tolerating current diet. (5) Vitamin D deficiency: Upon review of past labs, Vitamin D was low at PCP appt Vit D 13, last checked in 2020 at 22. Started weekly vit. D supplement follow up as outpt (6) Blood glucose elevated: Random glucose 193 on admission. Last A1C in 2020 was 5. checked current A1C 4.9% (7) Depression: Continue venlafaxine as inpatient No further intervention needed at this time, pending patient report of mood following anemia correction Total Time Total Time Spent Total Time Spent (In Minutes): 40 Discharge Plan Discharge Items Patient Disposition: Home - Self-Care Reason For Visit: IRON DEFICIENCY ANEMIA Discharge Diagnosis: Iron deficiency anemia Menorrhagia with regular cycle Vitamin D deficiency H/O gastric bypass Condition on Discharge: Fair Activity: Per Instructions section Non-emergency contact: Primary Care Provider, Specialist and Tarring Machine Operator Call non-emergency contact if: you have any medication questions and your symptoms worsen Follow-up/Referrals: Cara Kamara, [email or web address] [Primary Care Provider] - Diet: Regular Addtl Attending Provider Instructions: Follow up with primary care doctor and gynecology (for menstrual bleeding). Also follow up with hematology (for anemia/ low blood count). You should be seen by primary care physician within 1 week. Besides anemia, you were also found to have low vit. D level. Recommend taking weekly supplement as prescribed. Pending Studies at Discharge: No Stand-Alone Forms: My [facility] [place], Smoking Cessation Medications and DC Order Prescriptions: New ergocalciferol (vitamin D2) 1,250 mcg (50,000 unit) Capsule 1,250 mcg PO Q7D Qty: 7 0RF Continued venlafaxine 37.5 mg capsule,extended release 24hr 37.5 mg PO UD Rx Instructions: hasn't started medication yet, they haven't went to pharmacy Discharge Orders: Discharge Order (Routine); Ordered 06/21/24 Ordered By: Rafael Adhikari Admission Data Admit Date/Time: 06/20/24 15:01 Attending Provider: Rafael Adhikari Admit Provider: Sonido Obrien Primary Care Provider: Cara Kamara Other Providers: Sonido Obrien; Kari Cherry Other Interventions: Discharge Summary Assessment (RN) Last Done: 06/21/24 09:40
[2024-06-21] MEDS: VENLAFAXINE HCL XR 37.5 MG CAPXR PO SCH (09:50)
[2024-06-21] MEDS: ERGOCALCIFEROL 1250 MCG (50,000 UNITS) CAP PO SCH (09:50)
== END 2024-06-21 11:01 | disposition home or self-care (01) | DRG 812 ==
LOC: ED 11:45 → 3N 15:01 → SUATTDRO 15:01 → 3N 17:40